=== PATIENT | male | born 2000 | race Caucasian/White ===

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

== ENCOUNTER 2022-05-08 13:47 | Emergency (ER) | payer MEDICAID, SELFPAY ==
[2022-05-08 13:47] VITALS: BP 119/88; PULSE 132; RESP 14; TEMP 36.7; O2SAT 100; BMI 18.3
[2022-05-08 14:36] LABS: Basophil# 0.03 X10^3/uL; Basophil% 0.4 % (0-1); Eosinophil# 0.03 X10^3/uL; Eosinophils% 0.4 % (0-5); Hematocrit 44.6 % (40-54); Hemoglobin 14.7 g/dL (13.0-16.5); Mean Corpuscular Hgb 29.8 pg (27.0-32.0); Mean Corpuscular Volume 90.3 fL (80-94); Mean Platelet Vol. 8.9 fl (6.2-12.0); Monocyte# 0.77 X10^3/uL; Monocyte% 9.2 % (0-10); NRBC Flagged by Analyzer 0 % (0-5); Neutrophil % 71.8 % (47-70); Platelet Count 370 K/mm3 (150-450); RBC Distribution Width CV 12.2 % (11.6-14.6); RBC Distribution Width SD 39.7 fl (35.1-43.9); Red Blood Count 4.94 M/mm3 (4.6-6.2); White Blood Count 8.4 K/mm3 (4.4-11.0)
[2022-05-08] MEDS: 0.9% Normal Saline 1,000 ML 1000 ML IV (14:39)
[2022-05-08] MEDS: Mag Hydrox/Al Hydrox/Simeth 30 ML UDC PO (14:39)
[2022-05-08 14:41] LABS: Bacteria 0 SEEN /hpf (None Seen); Mucous, Urine 0 SEEN /hpf (<or=2+); Red Blood Cells-Urine 0 SEEN /hpf (0-5); Squamous Epithelial Cells - UA 0 SEEN /hpf (0-5); White Blood Cells 0 SEEN /hpf (0-5)
[2022-05-08 14:43] LABS: Color, Urine Yellow (Yellow); Glucose, Dipstick Normal (Normal); Ketone-Dipstick Negative (Negative); Leukocyte Esterase-Dipstick Negative /ul (Negative); Nitrite-Dipstick Negative (Negative); Occult Blood-Urine Negative /ul (Negative); Protein-Dipstick Negative (Negative); Specific Gravity, Urine 1.005 (1.002-1.030); Urine Bilirubin Dipstick Negative (Negative); Urine Clarity Clear (Clear); Urine Urobilinogen Normal (Normal)
[2022-05-08 14:52] LABS: AST(SGOT) 277 U/L (15-37); Alanine Aminotransfer ALT/SGPT 210 U/L (16-61); Albumin, Serum 4.4 g/dL (3.2-5.0); Alkaline Phosphatase 112 U/L (45-117); Anion Gap 6 (5-15); BUN 5 mg/dL (7-18); Calcium,Total 9.8 mg/dL (8.5-10.1); Chloride 102 mmol/L (98-107); Creatinine, Serum 0.83 mg/dL (0.70-1.30); EST Glomerular Filtration Rate 126 mL/min (>60); Est Glom Filt Rate - Afr Amer 153 mL/min (>60); Estimated Creatinine Clearance 121.23 ml/min; Globulin 4.3 g/dL (2.2-4.2); Glucose 124 mg/dL (74-106); Lipase 189 U/L (73-393); Potassium 3.8 mmol/L (3.5-5.1); Protein, Total 8.7 g/dL (6.4-8.2); Sodium Level 137 mmol/L (136-145)
--- NOTE | 2022-05-08 15:10 | ED.VIS.GI ---
HPI HPI - GI History of Present Illness Chief Complaint: Abd Pain Informant: patient Abdominal Pain/Flank Pain Onset: Days Context: Gradual Onset Timing: Continuous Quality: Sharp and - (Pressure) Location: Epigastric, RUQ and LUQ Worsened by: Food Relieved by: Nothing Nausea/Vomiting/Emesis GI Symptom: Positive for Nausea and Vomiting Quality: Positive for Nonbilious; Negative for Blood streaks, Coffee ground or Hematemesis Diarrhea/Melena/Hematochezia GI Symptom: Negative for Diarrhea, Melena or Hematochezia Associated Symptoms Associated Symptoms: Negative for Dysuria, Frequency or Hematuria Narrative Narrative: Patient presents with abdominal pain that has been getting worse over the past few days. Patient states it has been constant. Patient states it came on gradually. Patient describes it as sharp and pressure. Patient states his pain is mainly over the upper abdomen. Patient states it is worse with eating. Patient states it is worse whenever he tries to push to have a bowel movement. Patient states he started having some nausea and vomiting today. Patient denies any hematemesis or coffee-ground emesis. Patient states he was just vomiting up stomach contents. Patient denies any diarrhea, melena, or hematochezia. Patient denies any dysuria, frequency, or hematuria. [facility] Medical History GERD (gastroesophageal reflux disease) Home Medications omeprazole 20 mg capsule,delayed release 20 mg PO DAILY #30 CAPSULES 05/08/22 [Rx Last Taken Unknown] Allergy/AdvReac Type Severity Reaction Status Date / Time No Known Allergies Allergy Verified 05/08/22 13:49 Surgical History Hx of rhinoplasty Social History Smoking Status: Light Smoker (<10/day) ROS ROS ED Constitutional Constitutional ED: Denies chills or fever(s) Eyes Eyes: Denies blurry vision or change in vision ENT ENT ED: Reports sore throat; Denies rhinorrhea Cardiovascular Cardiovascular: Denies chest pain or palpitations Respiratory/Chest Respiratory/Chest: Denies cough or dyspnea Gastrointestinal Gastrointestinal: Reports abdominal pain, nausea and vomiting Genitourinary Genitourinary ED: Denies dysuria or hematuria Musculoskeletal Musculoskeletal: Reports back pain; Denies neck pain Integumentary Denies abscess or rash Neurologic Neurologic: Denies headache(s) or weakness Allergic/Immunologic Allergic/Immunologic ED: Denies mouth swelling or urticaria EXAM Physical Exam Const Vital Signs: 05/08/22 13:47 05/08/22 15:50 Temperature 98.0 F Temperature Source Temporal Pulse Rate 132 H 63 Respiratory Rate 14 16 Blood Pressure 119/88 H 115/75 Blood Pressure Mean 98 88 Pulse Ox 100 97 Oxygen Delivery Method Room Air Room Air Positive well nourished and well developed General Appearance ED: well developed and NAD HEENT Reports moist mucous membranes Neck supple and no JVD Resp normal respiratory effort and clear to auscultation bilaterally Cardio regular rate, regular rhythm and no murmurs GI normal to inspection, nondistended, normoactive bowel sounds Palpation: soft and tender epigastric, LUQ and RUQ; Negative for guarding or rebound tenderness present Extremity normal to inspection General Extremety ED: Negative for edema or tenderness General Extremity: Negative for edema Neuro oriented x3, CN's II-XII intact bilaterally and no sensory deficits noted Sensorium / Orientation: alert Motor Exam: strength 5/5 throughout Psych mental status grossly normal Skin no rashes or lesions noted MDM MDM MDM Narrative Medical decision making narrative: Diagnosis includes pancreatitis, peptic ulcer disease, duodenal ulcer, gastritis, cholecystitis, cholelithiasis, urinary tract infection, bowel obstruction, bowel perforation, and pyelonephritis. CBC will be obtained to assess for leukocytosis and anemia. Comprehensive metabolic profile will be obtained to assess for electrolyte abnormality, renal function, and hepatic function. Lipase will be obtained to assess for pancreatitis. Urinalysis will be obtained to assess for urinary tract infection and hematuria. Right upper quadrant ultrasound will be obtained to reassess for cholecystitis and cholelithiasis. Lab Data Attestation: I reviewed the patient's lab results. Lab results narrative: CBC was reviewed and was within normal limits. Comprehensive metabolic profile was reviewed. Total bilirubin was mildly elevated at 2.0, AST was mildly elevated at 277, ALT was mildly elevated at 210. Lipase was normal. Urinalysis was reviewed and was within normal limits. Labs: Laboratory Results - last 24 hr 05/08/22 05/08/22 05/08/22 13:55 14:00 14:00 WBC 8.4 RBC 4.94 Hgb 14.7 Hct 44.6 MCV 90.3 MCH 29.8 MCHC 33.0 RDW Std Deviation 39.7 RDW Coeff of Nancy 12.2 Plt Count 370 MPV 8.9 Immature Gran % (Auto) 0.200 Neut % (Auto) 71.8 H Lymph % (Auto) 18.0 L [place] % (Auto) 9.2 Eos % (Auto) 0.4 Baso % (Auto) 0.4 Absolute Neuts (auto) 6.0 Absolute Lymphs (auto) 1.50 Nucleated RBC % 0 Sodium 137 Potassium 3.8 Chloride 102 Carbon Dioxide 29.0 Anion Gap 6 BUN 5 L Creatinine 0.83 Estim Creat Clear Calc 121.23 Est GFR (MDRD) Af Amer 153 Est GFR (MDRD) Non-Af 126 BUN/Creatinine Ratio 6.0 L Glucose 124 H Calcium 9.8 Total Bilirubin 2.00 H AST 277 H ALT 210 H Alkaline Phosphatase 112 Total Protein 8.7 H Albumin 4.4 Globulin 4.3 H Albumin/Globulin Ratio 1.0 Lipase 189 Urine Color Yellow Urine Clarity Clear Urine pH 7.0 Ur Specific [place] 1.005 Urine Protein Negative Urine Glucose (UA) Normal Urine Ketones Negative Urine Occult Blood Negative Urine Nitrite Negative Urine Bilirubin Negative Urine Urobilinogen Normal Ur Leukocyte Esterase Negative Urine RBC 0 SEEN Urine WBC 0 SEEN Ur Squamous Epith Cells 0 SEEN Urine Bacteria 0 SEEN Urine Mucus 0 SEEN Radiography Diagnostic Testing: Clinical Impression(s) from Imaging Studies Gallbladder Ultrasound 05/08/22 15:21 IMPRESSION: 1. Distended gallbladder containing gallstones and sludge. There is no wall thickening and negative Whaley''s sign. Findings are critical for acute cholecystitis. 2. Otherwise normal right upper quadrant abdominal ultrasound Electronically Signed: Cheikh Wood DO at 16:37 EST Reading Location ID and State: [address] [place] [address] Tel [phone], Service support , Because of the elevated total bilirubin, AST, and ALT, a right upper quadrant ultrasound was ordered. There is a distended gallbladder containing gallstones and sludge. There is no wall thickening and a negative Whaley sign. There is no pericholecystic fluid. Common bile duct measures 4.8 mm. This was interpreted by the radiologist and was also independently reviewed by myself. Treatment and Re-Evaluation :: Patient was given a GI cocktail and Zofran. Patient was given IV fluids. Patient is feeling better on reevaluation. Patient was initially ordered morphine along with a GI cocktail however he states his pain improved with a GI cocktail and did not want the morphine. Case was discussed with Dr. Rocha from general surgery. He states patient can follow-up as an outpatient. He does not feel the patient warrants admission for emergent cholecystectomy. Patient was given a prescription for omeprazole. Patient was instructed to use [id number] Tums as needed. Patient was instructed to avoid alcohol. Patient was instructed to follow-up with Dr. Rocha in 5 to 7 days. Patient was also instructed to follow-up with his primary care physician in 1 to 2 weeks. Patient understood and was agreeable with plan. All questions were answered. Discharge Plan Triage Chief Complaint: Abd Pain ED Provider: Pete Morgan Dx/Rx/DC Orders Clinical Impression: Cholelithiasis, Abdominal pain in male Instructions: ED Abdominal Pain Gallstone Poss, ED Gallstones with Biliary Colic Prescriptions: New omeprazole [omeprazole] 20 mg capsule,delayed release(DR/EC) 20 mg PO DAILY Qty: 30 0RF Primary Care Provider: Gurpreet Cornelius Referrals: Richie Rocha MD [Med Staff - Active Staff] - 5-7 Days Gurpreet Cornelius MD [Primary Care Provider] - 1-2 Weeks Activity Restrictions/Additional Instructions: Do not drink any alcohol. Avoid fried foods, fatty foods, and greasy foods as this will make your pain worse. Disposition Disposition: Home, Self Care
--- NOTE | 2022-05-08 15:21 | US_ITS ---
STUDY: ABDOMINAL ULTRASOUND - RIGHT UPPER QUADRANT REASON FOR VISIT: Male, 21 years old. Pain. TECHNIQUE: Ultrasound evaluation of the right upper quadrant was performed with real-time and static adams-scale imaging. TECHNICAL QUALITY: Adequate. COMPARISON: None. FINDINGS: Liver: The liver measures 14.5 cm. There is normal echogenicity of the liver. The bile ducts are within normal limits. There is hepatic color flow. The direction of portal flow is hepatopetal. There is no demonstrated mass lesion. Gallbladder: Well-distended gallbladder The gallbladder wall measures 3 mm. There is a negative sonographic Whaley''s sign. There is no pericholecystic fluid. Multiple small gallstones and sludge are seen within the fundus. Common Bile Duct (C.B.D.): The common bile duct measures 4.8 mm. Pancreas: Normal size of the head, body and tail of the pancreas. There is normal echogenicity of the pancreas. There is no demonstrated pancreatic mass or cyst. Right Kidney: Normal size of the right kidney. The right kidney measures 10.2 cm. Normal renal cortex. The right cortex measures 1.0 cm. There is no demonstrated renal mass or cyst. There is no right hydronephrosis. US/Gallbladder IMPRESSION: 1. Distended gallbladder containing gallstones and sludge. There is no wall thickening and negative Whaley''s sign. Findings are critical for acute cholecystitis. 2. Otherwise normal right upper quadrant abdominal ultrasound Electronically Signed: Cheikh Wood DO at 16:37 EST ,
[2022-05-08 15:50] VITALS: BP 115/75; PULSE 63; RESP 16; O2SAT 97
== END 2022-05-08 16:59 | disposition home or self-care (01) ==
PROVIDERS: Emergency Provider Emergency Medicine; PCP Pediatrics; Visit Provider Emergency Medicine
DX: K80.00 Calculus of gallbladder with acute cholecystitis without obstruction (principal); F17.200 Nicotine dependence, unspecified, uncomplicated
CPT/HCPCS: 76705; 80053; 81001; 83690; 85025; 96361; 96374; 96375; 99284; J7030; A4216

== ENCOUNTER 2022-06-29 21:56 | Emergency (ER) | payer MEDICAID, SELFPAY ==
[2022-06-29 21:56] VITALS: BP 121/82; PULSE 63; RESP 16; TEMP 36.9; O2SAT 100; BMI 18.6
[2022-06-29 22:13] LABS: Bacteria 0 SEEN /hpf (None Seen); Mucous, Urine 0 SEEN /hpf (<or=2+); Red Blood Cells-Urine 0 SEEN /hpf (0-5); Squamous Epithelial Cells - UA 0 SEEN /hpf (0-5); White Blood Cells 0 SEEN /hpf (0-5)
[2022-06-29 22:20] LABS: Color, Urine Yellow (Yellow); Glucose, Dipstick Normal (Normal); Ketone-Dipstick Negative (Negative); Leukocyte Esterase-Dipstick Negative /ul (Negative); Nitrite-Dipstick Negative (Negative); Occult Blood-Urine Negative /ul (Negative); Protein-Dipstick 15 mg/dl (Negative); Urine Bilirubin Dipstick Negative (Negative); Urine Clarity Clear (Clear); Urine Urobilinogen Normal (Normal)
[2022-06-29 22:53] LABS: Absolute Lymphocyte Count 3.48 X10^3/uL (0.83-4.51); Absolute Neutrophil Count 5.4 X10^3/uL (2.0-7.7); Basophil# 0.05 X10^3/uL; Basophil% 0.5 % (0-1); Eosinophil# 0.12 X10^3/uL; Eosinophils% 1.2 % (0-5); Hematocrit 41.8 % (40-54); Hemoglobin 13.9 g/dL (13.0-16.5); Lymphocyte # 3.48 X10^3/ul (0.83-4.51); Lymphocyte % 34.5 % (19-41); Mean Corp Hgb Conc 33.3 g/dL (32-36); Mean Corpuscular Hgb 30.2 pg (27.0-32.0); Mean Corpuscular Volume 90.9 fL (80-94); Mean Platelet Vol. 8.9 fl (6.2-12.0); Monocyte# 1.02 X10^3/uL; Monocyte% 10.1 % (0-10); NRBC Flagged by Analyzer 0 % (0-5); Neutrophil # 5.39 X10^3/uL (2.7-7.7); Neutrophil % 53.4 % (47-70); Platelet Count 278 K/mm3 (150-450); RBC Distribution Width CV 13.2 % (11.6-14.6); RBC Distribution Width SD 43.9 fl (35.1-43.9); White Blood Count 10.1 K/mm3 (4.4-11.0)
[2022-06-29 23:12] LABS: ALB/GLOB Ratio 1.3 RATIO (0.9-2.4); AST(SGOT) 24 U/L (15-37); Alanine Aminotransfer ALT/SGPT 31 U/L (16-61); Albumin, Serum 4.4 g/dL (3.2-5.0); Alkaline Phosphatase 72 U/L (45-117); Anion Gap 3 (5-15); BUN 10 mg/dL (7-18); BUN/Creat Ratio 12.4 RATIO (10-20); Calcium,Total 9.3 mg/dL (8.5-10.1); Chloride 105 mmol/L (98-107); EST Glomerular Filtration Rate 131 mL/min (>60); Est Glom Filt Rate - Afr Amer 158 mL/min (>60); Estimated Creatinine Clearance 127.72 ml/min; Globulin 3.5 g/dL (2.2-4.2); Glucose 110 mg/dL (74-106); Potassium 3.7 mmol/L (3.5-5.1); Protein, Total 7.9 g/dL (6.4-8.2); Sodium Level 137 mmol/L (136-145)
--- NOTE | 2022-06-30 00:19 | EDS_ITS ---
HPI HPI - GI History of Present Illness Chief Complaint: Abd Pain Informant: patient Abdominal Pain/Flank Pain Onset: Month(s) (1) Timing: Intermittent Quality: Aching and Cramping Location: Epigastric Current Severity: Gone Maximum Severity: Moderate Worsened by: Food (some; depends on what is eaten) Nausea/Vomiting/Emesis GI Symptom: Positive for Nausea and Vomiting Onset: Today Quality: Positive for Nonbilious; Negative for Blood streaks, Coffee ground or Hematemesis Severity: Moderate Diarrhea/Melena/Hematochezia GI Symptom: Negative for Diarrhea, Melena or Hematochezia Associated Symptoms Associated Symptoms: Negative for Dysuria, Frequency or Hematuria Narrative Narrative: Abdominal pain off-and-on for the last month, sometimes after certain meals, sometimes when he eats it makes it better. Today he was vomiting a lot along with the pain which is what brought him to the ER. He has been seen in the ER previously for this and was prescribed omeprazole, he states initially he was taking it intermittently but he has been taking it consistently for the past 2 weeks now, he said at first it seemed like it was helping, but today since he was vomiting a lot he comes back. He has not followed up yet for this. He states he works 12-hour shifts, Sunday-Sunday, and sometimes on weekends, so it is hard for him to follow-up which is understandable. No history of any abdominal surgeries. No bleeding from anywhere. States he is feeling much better right now. PFSH [facility] Medical History GERD (gastroesophageal reflux disease) Home Medications omeprazole 20 mg capsule,delayed release 20 mg PO DAILY #30 CAPSULES 05/08/22 [R x Last Taken Unknown] ondansetron 4 mg disintegrating tablet 8 mg PO Q8H PRN PRN Nausea #20 tabs 06/30/22 [Rx Last Taken Unknown] sucralfate 1 gram tablet (Carafate) 1 g PO TID #21 tabs 06/30/22 [Rx Last Taken Unknown] Allergy/AdvReac Type Severity Reaction Status Date / Time No Known Allergies Allergy Verified 06/29/22 21:58 Surgical History Hx of rhinoplasty Social History Smoking Status: Light Smoker (<10/day) ROS ROS ED Constitutional Constitutional ED: Denies chills or fever(s) Eyes Eyes: Denies change in vision or diplopia ENT ENT ED: Denies rhinorrhea or sore throat Cardiovascular Cardiovascular: Denies chest pain or palpitations Respiratory/Chest Respiratory/Chest: Denies cough or dyspnea Gastrointestinal Gastrointestinal: Denies abdominal pain, diarrhea, nausea or vomiting Genitourinary Genitourinary ED: Denies dysuria or hematuria Musculoskeletal Musculoskeletal: Denies back pain or neck pain Integumentary Denies abscess or rash Neurologic Neurologic: Denies headache(s), paresthesias or weakness Psychiatric Psychiatric: Denies anxiety or suicidal thoughts EXAM Physical Exam Const Vital Signs: 06/29/22 21:56 Temperature 98.4 F Temperature Source Temporal Pulse Rate 63 Respiratory Rate 16 Blood Pressure 121/82 H Blood Pressure Mean 95 Pulse Ox 100 Oxygen Delivery Method Room Air Positive well nourished and well developed General Appearance ED: well developed and NAD HEENT Reports moist mucous membranes normocephalic and atraumatic Eyes PERRL and EOMs intact bilaterally Neck full ROM and supple Resp normal respiratory effort and clear to auscultation bilaterally Cardio regular rate, regular rhythm and no murmurs GI non-tender and non-distended Auscultation: normoactive bowel sounds Palpation: soft Back/Spine no CVA tenderness General Back: other FROM Extremity normal to inspection General Extremety ED: Negative for edema, pulses abnormal or tenderness General Extremity: Negative for edema or pulses abnormal Neuro oriented x3, CN's II-XII intact bilaterally and no sensory deficits noted Sensorium / Orientation: awake and alert Motor Exam: strength 5/5 throughout Skin no rashes or lesions noted and no wounds MDM MDM MDM Narrative Medical decision making narrative: Nursing obtained blood test prior to my evaluation, I reviewed them. They are normal. Patient was reassured I do not think he needs a lipase added since his pain is gone and his exam is benign. He is not drinking alcohol. I agree with doing the omeprazole and following up with a doctor, I am going to add Carafate for the next week, and a prescription for Zofran given him 1 for the night prior to discharge she is comfortable with that plan. Lab Data Attestation: I reviewed the patient's lab results. Labs: Laboratory Results - last 24 hr 06/29/22 06/29/22 06/29/22 22:08 22:45 22:45 WBC 10.1 RBC 4.60 Hgb 13.9 Hct 41.8 MCV 90.9 MCH 30.2 MCHC 33.3 RDW Std Deviation 43.9 RDW Coeff of Nancy 13.2 Plt Count 278 MPV 8.9 Immature Gran % (Auto) 0.300 Neut % (Auto) 53.4 Lymph % (Auto) 34.5 [place] % (Auto) 10.1 H Eos % (Auto) 1.2 Baso % (Auto) 0.5 Absolute Neuts (auto) 5.4 Absolute Lymphs (auto) 3.48 Nucleated RBC % 0 Sodium 137 Potassium 3.7 Chloride 105 Carbon Dioxide 29.0 Anion Gap 3 L BUN 10 Creatinine 0.80 Estim Creat Clear Calc 127.72 Est GFR (MDRD) Af Amer 158 Est GFR (MDRD) Non-Af 131 BUN/Creatinine Ratio 12.4 Glucose 110 H Calcium 9.3 Total Bilirubin 0.80 AST 24 ALT 31 Alkaline Phosphatase 72 Total Protein 7.9 Albumin 4.4 Globulin 3.5 Albumin/Globulin Ratio 1.3 Urine Color Yellow Urine Clarity Clear Urine pH 7.0 Ur Specific [place] 1.010 Urine Protein 15 H Urine Glucose (UA) Normal Urine Ketones Negative Urine Occult Blood Negative Urine Nitrite Negative Urine Bilirubin Negative Urine Urobilinogen Normal Ur Leukocyte Esterase Negative Urine RBC 0 SEEN Urine WBC 0 SEEN Ur Squamous Epith Cells 0 SEEN Urine Bacteria 0 SEEN Urine Mucus 0 SEEN Discharge Plan Triage Chief Complaint: Abd Pain ED Provider: Michael Lorenzo Dx/Rx/DC Orders Clinical Impression: Acute gastritis without bleeding Instructions: ED Gastritis (Adult) Prescriptions: New ondansetron [ondansetron] 4 mg tablet,disintegrating 8 mg PO Q8H PRN PRN (Reason: Nausea) Qty: 20 0RF sucralfate [Carafate] 1 gram tablet 1 g PO TID Qty: 21 0RF No Action omeprazole [omeprazole] 20 mg capsule,delayed release(DR/EC) 20 mg PO DAILY Qty: 30 0RF Primary Care Provider: Gurpreet Cornelius Referrals: Gurpreet Cornelius MD [Primary Care Provider] - 1 Week if not improving Disposition Disposition: Home, Self Care
[2022-06-30] MEDS: Ondansetron ODT 4 MG Tablet 8 MG PO (00:35)
[2022-06-30 00:37] VITALS: BP 117/81; PULSE 56; RESP 16; O2SAT 98
== END 2022-06-30 00:42 | disposition home or self-care (01) ==
PROVIDERS: Emergency Provider Emergency Medicine; PCP Pediatrics; Visit Provider Emergency Medicine
DX: K29.00 Acute gastritis without bleeding (principal); K21.9 Gastro-esophageal reflux disease without esophagitis; F17.200 Nicotine dependence, unspecified, uncomplicated; Z79.899 Other long term (current) drug therapy
CPT/HCPCS: 80053; 85025; 81001; 99283; J3490; A4216

== ENCOUNTER 2022-07-01 18:50 | Observation (INO) | payer MEDICAID, SELFPAY ==
[2022-07-01 18:51] VITALS: BP 106/82; PULSE 82; RESP 16; TEMP 36.4; O2SAT 100; BMI 18.5
--- NOTE | 2022-07-01 19:14 | EDS_ITS ---
HPI HPI - GI History of Present Illness Chief Complaint: Abd Pain Informant: patient Narrative Narrative: Patient has been having upper abdominal pain for the past month. Intermittent, feels like cramping or aching, mostly epigastric, seems worse with foods. He was seen here 2 days for it, his labs were negative and he was prescribed medications for upper GI etiologies, he states initially it seemed like it was helping, but now his pain is moved to the right upper quadrant and seems more colicky, radiates to his back on the right a little, and he states his girlfriend told him that his eyes look yellow. He has had a poor appetite, but when he did eat, the pain was worse about an hour later and has been colicky. PFSH PFSH Medical History GERD (gastroesophageal reflux disease) Home Medications omeprazole 20 mg capsule,delayed release 20 mg PO DAILY #30 CAPSULES 05/08/22 [Rx Last Taken Unknown] ondansetron 4 mg disintegrating tablet 8 mg PO Q8H PRN PRN Nausea #20 tabs 06/30/22 [Rx Last Taken Unknown] sucralfate 1 gram tablet (Carafate) 1 g PO TID #21 tabs 06/30/22 [Rx Last Taken Unknown] Allergy/AdvReac Type Severity Reaction Status Date / Time No Known Allergies Allergy Verified 07/01/22 18:52 Surgical History Hx of rhinoplasty Social History Smoking Status: Light Smoker (<10/day) ROS ROS ED Constitutional Constitutional ED: Reports other Details: no travel out of the area recently ; Denies chills or fever(s) Eyes Eyes: Denies change in vision or diplopia ENT ENT ED: Denies rhinorrhea or sore throat Cardiovascular Cardiovascular: Denies chest pain or palpitations Respiratory/Chest Respiratory/Chest: Denies cough or dyspnea Gastrointestinal Gastrointestinal: Reports abdominal pain and nausea; Denies diarrhea or vomiting Genitourinary Genitourinary ED: Denies dysuria or hematuria Musculoskeletal Musculoskeletal: Denies back pain or neck pain Integumentary Denies abscess or rash Neurologic Neurologic: Denies headache(s), paresthesias or weakness Psychiatric Psychiatric: Denies anxiety or suicidal thoughts EXAM Physical Exam Const Vital Signs: 07/01/22 18:51 07/01/22 20:50 07/01/22 22:00 Temperature 97.5 F L Temperature Source Temporal Pulse Rate 82 Respiratory Rate 16 18 Blood Pressure 106/82 H 102/78 Blood Pressure Mean 90 86 Pulse Ox 100 Oxygen Delivery Method Room Air Positive well nourished and well developed General Appearance ED: well developed and NAD HEENT Reports moist mucous membranes normocephalic and atraumatic Eyes PERRL and EOMs intact bilaterally General Eye ED: Yes scleral icterus Neck full ROM and supple Resp normal respiratory effort and clear to auscultation bilaterally Cardio regular rate, regular rhythm and no murmurs GI non-distended GI Narrative: Tender right upper quadrant more than the epigastrium, mildly positive Whaley's, no other guarding/rebound. No other areas of tenderness. Auscultation: normoactive bowel sounds Palpation: soft Back/Spine no CVA tenderness General Back: other FROM Extremity normal to inspection General Extremety ED: Negative for edema, pulses abnormal or tenderness General Extremity: Negative for edema or pulses abnormal Neuro oriented x3, CN's II-XII intact bilaterally and no sensory deficits noted Sensorium / Orientation: awake and alert Motor Exam: strength 5/5 throughout Psych mental status grossly normal and thought process normal Skin no rashes or lesions noted and no wounds General Skin Exam: Negative for jaundice MDM MDM MDM Narrative Medical decision making narrative: Patient did not have a leukocytosis or elevated liver enzymes 2 days ago, I repeated those, and also reviewed old records. Unknown prior to this, the patient had an ultrasound about 1.5 months ago showing cholelithiasis, this was discovered here in the emergency department, he was advised to follow-up with surgery as an outpatient. He has not done this. I did a bedside ultrasound of his gallbladder. I confirmed that the patient has gallstones, a positive sonographic Whaley, but I do not see any pericholecystic fluid. The gallbladder wall on my measurements is 0.24 cm, and the common bile duct on my measurement is 0.18 cm. His bilirubin is significantly elevated consistent with the scleral icterus I am seeing clinically, his lipase is normal and his white blood count is normal. He does have mild liver enzyme elevations, but not AP, of undetermined significance at this time. Patient does not have any risk factors for hepatitis; he is not an IV drug user, no travel out of the area recently, not a man having sex with men, and no history of infectious hepatitis. Given all of this, he will need to be admitted to the hospital for further workup. He is not septic, he is relatively well-appearing at this time, his pain is only 4/10, I will give him Toradol and Zofran for his nausea. I discussed w/ surgery Dr. Ng, who advised a direct bili and a CT. These were obtained. The CT abdomen/pelvis was basically unremarkable, I reviewed the interpretation of the images, I agree with the radiologist's interpretation. Discussing with surgery, she is concerned that this is not necessarily choledocholithiasis, and recommend admission to the hospital to medicine with a surgical consultation. History & Record Review Additional record(s) reviewed:: Prior ED visit and Prior labs (and imaging) Lab Data Attestation: I reviewed the patient's lab results. Labs: Laboratory Results - last 24 hr 07/01/22 07/01/22 07/01/22 19:22 19:22 19:22 WBC 6.4 RBC 4.50 L Hgb 13.7 Hct 41.5 MCV 92.2 MCH 30.4 MCHC 33.0 RDW Std Deviation 44.4 H RDW Coeff of Nancy 13.2 Plt Count 259 MPV 8.9 Immature Gran % (Auto) 0.200 Neut % (Auto) 60.1 Lymph % (Auto) 28.1 [place] % (Auto) 9.4 Eos % (Auto) 1.7 Baso % (Auto) 0.5 Absolute Neuts (auto) 3.8 Absolute Lymphs (auto) 1.79 Nucleated RBC % 0 Sodium 136 Potassium 3.6 Chloride 105 Carbon Dioxide 29.0 Anion Gap 2 L BUN 9 Creatinine 0.94 Estim Creat Clear Calc 107.86 Est GFR (MDRD) Af Amer 132 Est GFR (MDRD) Non-Af 109 BUN/Creatinine Ratio 9.6 L Glucose 101 Calcium 9.3 Total Bilirubin 8.30 H Direct Bilirubin 4.61 H AST 79 H ALT 123 H Alkaline Phosphatase 94 Total Protein 7.6 Albumin 4.2 Globulin 3.4 Albumin/Globulin Ratio 1.2 Lipase 44 Radiography Diagnostic Testing: Clinical Impression(s) from Imaging Studies Abdomen/Pelvis CT 07/01/22 20:14 IMPRESSION: 1. Moderate distention the stomach however no masses or wall thickening identified. 2. No bowel obstruction. Moderate amount retained formed stool in colon. Normal appendix. 3. No evidence of obstructive uropathy. 4. No radiodense calcifications in the gallbladder. Electronically Signed: Bj Cabrera MD at 22:18 EDT , Management Discussion w/another healthcare provider: Hospitalist and Special Education Math Teacher (surgery Jared Ng) Discharge Plan Dx/Rx/DC Orders Clinical Impression: Biliary colic, Cholelithiasis, Acquired hyperbilirubinemia Disposition Disposition: Acute Care Hospital [facility]
[2022-07-01 19:27] LABS: Absolute Lymphocyte Count 1.79 X10^3/uL (0.83-4.51); Absolute Neutrophil Count 3.8 X10^3/uL (2.0-7.7); Basophil# 0.03 X10^3/uL; Basophil% 0.5 % (0-1); Eosinophil# 0.11 X10^3/uL; Eosinophils% 1.7 % (0-5); Hematocrit 41.5 % (40-54); Hemoglobin 13.7 g/dL (13.0-16.5); Lymphocyte # 1.79 X10^3/ul (0.83-4.51); Lymphocyte % 28.1 % (19-41); Mean Corpuscular Hgb 30.4 pg (27.0-32.0); Mean Corpuscular Volume 92.2 fL (80-94); Mean Platelet Vol. 8.9 fl (6.2-12.0); Monocyte% 9.4 % (0-10); NRBC Flagged by Analyzer 0 % (0-5); Neutrophil # 3.82 X10^3/uL (2.7-7.7); Neutrophil % 60.1 % (47-70); Platelet Count 259 K/mm3 (150-450); RBC Distribution Width CV 13.2 % (11.6-14.6); RBC Distribution Width SD 44.4 fl (35.1-43.9); White Blood Count 6.4 K/mm3 (4.4-11.0)
[2022-07-01 19:47] LABS: ALB/GLOB Ratio 1.2 RATIO (0.9-2.4); AST(SGOT) 79 U/L (15-37); Alanine Aminotransfer ALT/SGPT 123 U/L (16-61); Albumin, Serum 4.2 g/dL (3.2-5.0); Alkaline Phosphatase 94 U/L (45-117); Anion Gap 2 (5-15); BUN 9 mg/dL (7-18); BUN/Creat Ratio 9.6 RATIO (10-20); Calcium,Total 9.3 mg/dL (8.5-10.1); Chloride 105 mmol/L (98-107); Creatinine, Serum 0.94 mg/dL (0.70-1.30); EST Glomerular Filtration Rate 109 mL/min (>60); Est Glom Filt Rate - Afr Amer 132 mL/min (>60); Estimated Creatinine Clearance 107.86 ml/min; Globulin 3.4 g/dL (2.2-4.2); Glucose 101 mg/dL (74-106); Lipase 44 U/L (13-75); Potassium 3.6 mmol/L (3.5-5.1); Protein, Total 7.6 g/dL (6.4-8.2); Sodium Level 136 mmol/L (136-145)
--- NOTE | 2022-07-01 20:14 | CT_ITS ---
INDICATION: RUQ pain, hyperbilirubinemia without elevated AP EXAMINATION: CT ABDOMEN AND PELVIS with CONTRAST - CT Abdomen And Pelvis W/ Contrast Injection TECHNIQUE: Multiple axial images were obtained of the abdomen and pelvis following administration of IV contrast. Planar reconstructions obtained. A radiation dose optimization technique was used for this scan. RADIATION DOSAGE (If Supplied By Facility): CTDIvol = ( 10.29 ) mGy, DLP = ( 376.65 ) mGycm IV Contrast dosage and agent: 100 mL Isovue-370 Oral contrast: None. COMPARISON: None. FINDINGS: LOWER THORAX: Lungs are clear. Cardiac contour is normal, no pericardial effusion. No coronary vascular calcifications noted. HEPATOBILIARY: Liver: The liver is homogeneous and shows no evidence of focal lesion. Gallbladder: The gallbladder is unremarkable. No evidence of ductal dilatation. Pancreas: Pancreas is normal size configuration and density. No mass is noted. Spleen: The spleen is homogeneous and normal in size. . BOWEL: Stomach: Moderate distention of the stomach with semisolid material. No masses or artie obstruction. Bowel: Small and large have normal configuration, no masses or bowel obstruction noted. Moderate amount retained stool throughout colon. Appendix: The visualized appendix has normal appearance.: GENITOURINARY: Adrenals: Both adrenal glands are normal in size. Kidneys: Kidneys appear symmetric in size. No calcifications are seen in the collecting system. There is no hydronephrosis or surrounding fluid. Bladder: Normal Pelvic organs: The visualized pelvic organs are normal in size and configuration. No masses or adenopathy noted. RETROPERITONEUM: There is normal appearance of the abdominal aorta and inferior vena cava. LYMPH NODES: No evidence of retroperitoneal or para-aortic masses fluid collections or adenopathy. PERITONEAL CAVITY: No ascites noted ANTERIOR ABDOMINAL WALL: Normal, no hernia identified. BONES AND SOFT TISSUES: The skeleton shows no evidence for fractures or destructive lesions. OTHER: None CT/Abdomen/Pelvis W IV Cont ONLY IMPRESSION: 1. Moderate distention the stomach however no masses or wall thickening identified. 2. No bowel obstruction. Moderate amount retained formed stool in colon. Normal appendix. 3. No evidence of obstructive uropathy. 4. No radiodense calcifications in the gallbladder. Electronically Signed: Bj Cabrera MD at 22:18 EDT ,
[2022-07-01] MEDS: Ketorolac 15 MG/ML Vial IV (20:28)
[2022-07-01] MEDS: Ondansetron 4 MG/2 ML Vial IV (20:28)
[2022-07-01] MEDS: 0.9% Normal Saline 1,000 ML 999 ML IV (20:28)
[2022-07-01 20:47] LABS: Bilirubin, Direct 4.61 mg/dL (0.00-0.30)
[2022-07-01 20:50] VITALS: RESP 18
[2022-07-01 22:00] VITALS: BP 102/78
[2022-07-02] VITALS (9 sets, daily range): BP systolic 101–126; BP diastolic 68–87; PULSE 55–80; RESP 16–18; TEMP 36.4–36.7; O2SAT 98–100; BMI 18.1
--- NOTE | 2022-07-02 | HP.PCM.HOS_ITS ---
[facility] - General General Date of Admission: 07/01/22 Date of Service: 07/02/22 Chief Complaint: Sclera icterus HPI Narrative ZIGGY BLACKMON, is a 21 M with no significant medical history who presents emergency department with scleral icterus that started on the same day of presentation. Associated with her symptoms is yellowish discoloration of his face. Also for the past 2 months also patient has noticed belly pain. Initially his pain was a t the epigastric region and it felt like clogged. Later his pain progressed to his right upper quadrant. His pain is episodic. Intensity of his pain is 7-8 on a scale of 1-10. His pain worsens with fatty foods. He reported that if he if he eats apple he does not have pain. However, if he eats pizza, spaghetti and grilled cheese he has pain about 30 minutes thereafter. He reports nausea and vomiting. He reports constipation with last bowel movement 2 to 3 days unlike his usual cycle of bowel movements every 1 to 2 days. ED doctor reports that on bedside ultrasound patient had gallstones without stone in the cystic duct. Of note patient had an ultrasound of his gallbladder on 05/08/2022 that showed distended gallbladder containing gallstones and sludge; and patient was instructed to follow-up outpatient. Also on 06/30/2022 patient was sent to ED and was diagnosed with acute gastritis and prescribed Zofran and sucralfate.. He was to continue his omeprazole. On current presentation 07/01/2022 emergency department doctor discussed the case with general surgery who upon review recommended recommended a CAT scan later; and recommended admission to internal medicine admission and with consultation to general surgery. [facility] Medical History GERD (gastroesophageal reflux disease) Home Medications ondansetron 4 mg disintegrating tablet 8 mg PO Q8H PRN PRN Nausea #20 tabs 06/30/22 [Rx Last Taken Unknown] omeprazole 20 mg capsule,delayed release 20 mg PO DAILY GERD 07/02/22 [History Last Taken 07/01/22] sucralfate 1 gram tablet (Carafate) 1 g PO TID Check with primary doctor 07/02/22 [History Last Taken 07/01/22] Allergy/AdvReac Type Severity Reaction Status Date / Time No Known Allergies Allergy Verified 07/01/22 18:52 Family History Other Gallbladder disease Surgical History Hx of rhinoplasty Social History Smoking Status: Light Smoker (<10/day) ROS ROS Narrative Pertinent positives and pertinent negatives as noted in HPI. All other systems were reviewed and are negative Vital Signs Vital Signs Vital Signs: 07/01/22 18:51 07/01/22 20:50 07/01/22 22:00 Temperature 97.5 F L Temperature Source Temporal Pulse Rate 82 Respiratory Rate 16 18 Blood Pressure 106/82 H 102/78 Blood Pressure Mean 90 86 Pulse Ox 100 Oxygen Delivery Method Room Air Weight Weight: 60.328 kg Body Mass Index (BMI) 18.5 Physical Exam Narrative Physical exam: General: Well-nourished, well-developed. Head: Normocephalic, atraumatic, no tenderness Eyes: Sclera icterus; vision is grossly intact. EOMI ENT, no trauma, moist mucous membranes, no rhinorrhea Neck: Nontender, No thyromegaly. CVS: Regular rate and rhythm. S1-S2 present. No murmur, gallop or rub. Respiratory : clear to auscultation bilaterally, chest wall nontender Abdomen: Soft, nontender, nondistended, normal bowel sounds, no masses : Deferred Back: Nontender, no CVA tenderness, no midline spinal tenderness, deformities, step-offs Extremities: Nontender full range of motion, no trauma Skin: Yellow skin, no trauma, abrasions Neuro: Alert, oriented, cranial nerves II through XII grossly intact. Psychiatry: Normal mood. Normal affect. Not depressed. Not anxious. Results Lab / Micro Data Result Diagrams: 07/01/22 19:22 07/01/22 19:22 Labs: Laboratory Results - last 24 hr 07/01/22 19:22: WBC 6.4, RBC 4.50 L, Hgb 13.7, Hct 41.5, MCV 92.2, MCH 30.4, MCHC 33.0, RDW Std Deviation 44.4 H, RDW Coeff of Nancy 13.2, Plt Count 259, MPV 8.9, Immature Gran % (Auto) 0.200, Neut % (Auto) 60.1, Lymph % (Auto) 28.1, [place] % (Auto) 9.4, Eos % (Auto) 1.7, Baso % (Auto) 0.5, Absolute Neuts (auto) 3.8, Absolute Lymphs (auto) 1.79, Nucleated RBC % 0 07/01/22 19:22: Sodium 136, Potassium 3.6, Chloride 105, Carbon Dioxide 29.0, Anion Gap 2 L, BUN 9, Creatinine 0.94, Estim Creat Clear Calc 107.86, Est GFR (MDRD) Af Amer 132, Est GFR (MDRD) Non-Af 109, BUN/Creatinine Ratio 9.6 L, Glucose 101, Calcium 9.3, Total Bilirubin 8.30 H, AST 79 H, ALT 123 H, Alkaline Phosphatase 94, Total Protein 7.6, Albumin 4.2, Globulin 3.4, Albumin/Globulin Ratio 1.2, Lipase 44 07/01/22 19:22: Direct Bilirubin 4.61 H Radiology Impression Abdomen/Pelvis CT 07/01/22 20:14 IMPRESSION: 1. Moderate distention the stomach however no masses or wall thickening identified. 2. No bowel obstruction. Moderate amount retained formed stool in colon. Normal appendix. 3. No evidence of obstructive uropathy. 4. No radiodense calcifications in the gallbladder. Electronically Signed: Bj Cabrera MD at 22:18 EDT , Assessment & Plan Assessment/Plan (1) Biliary colic: (2) Cholelithiasis: (3) Acquired hyperbilirubinemia: (4) Constipation: PLAN: Plan Cholelithiasis/biliary colic/acquired hyperbilirubinemia With pain associated with fatty foods likely biliary colic. Radiologist impression of gallbladder ultrasound on 05/08/2022: 1.? Distended gallbladder containing gallstones and sludge. There is no wall thickening and negative Whaley''s sign. Findings are critical for acute cholecystitis. 2.? Otherwise normal right upper quadrant abdominal ultrasound However concern is no elevation in alkaline phosphatase. Will check acute hep atitis panel. We will check ceruloplasmin; anti-smooth body antibody; antinuclear antibody and antimitochondrial antibody. Trend CBC and CMP. Morphine IV prn pain. Zofran IV as needed for nausea/vomiting. Low Fat diet. General surgery consult. Constipation Radiologist impression of abdomen/pelvis CT: 1. ? Moderate distention the stomach however no masses or wall thickening identified. 2.? No bowel obstruction. Moderate amount retained formed stool in colon. Normal appendix. 3.? No evidence of obstructive uropathy. 4.? No radiodense calcifications in the gallbladder. Hospitalist independent interpretation of CT: Agrees with radiology interpretation of [place] as ordered. DVT prophylaxis Low risk. Encourage to ambulate Charges/Coding Visit Charges Inpatient E&M: 32700 Init Hosp L3
[2022-07-02] MEDS: Senna/Docusate Sodium 1 Tablet 2 TABLET PO ×3 (01:19→22:22)
[2022-07-02 06:38] LABS: Absolute Neutrophil Count 3.8 X10^3/uL (2.0-7.7); Basophil# 0.03 X10^3/uL; Basophil% 0.4 % (0-1); Eosinophil# 0.05 X10^3/uL; Eosinophils% 0.7 % (0-5); Hematocrit 39.6 % (40-54); Hemoglobin 13.1 g/dL (13.0-16.5); Mean Corp Hgb Conc 33.1 g/dL (32-36); Mean Corpuscular Hgb 30.1 pg (27.0-32.0); Mean Platelet Vol. 9.1 fl (6.2-12.0); Monocyte# 0.74 X10^3/uL; Monocyte% 11.1 % (0-10); NRBC Flagged by Analyzer 0 % (0-5); Neutrophil # 3.84 X10^3/uL (2.7-7.7); Neutrophil % 57.7 % (47-70); Platelet Count 267 K/mm3 (150-450); RBC Distribution Width CV 13.3 % (11.6-14.6); RBC Distribution Width SD 44.9 fl (35.1-43.9); Red Blood Count 4.35 M/mm3 (4.6-6.2); White Blood Count 6.7 K/mm3 (4.4-11.0)
[2022-07-02 06:42] LABS: International Normalized Ratio 1.2; Prothrombin Time (Protime)PT. 14.8 SECONDS (11.7-14.9)
--- NOTE | 2022-07-02 06:55 | PCM.PN.HOSP ---
Reason for Visit Reason for Visit: Diagnoses Other disorders of bilirubin metabolism (07/01/22) Constipation, unspecified (07/01/22) Calculus of gallbladder without cholecystitis without obstruction (07/01/22) Calculus of bile duct without cholangitis or cholecystitis without obstruction (07/01/22) Subjective Subjective Reports he is feeling slightly better though still has the right upper quadrant pain, less nausea. Objective Data Objective Data Vital Signs: Vital Signs Temp Pulse Resp BP Pulse Ox O2 Del Method 98.1 F 70 16 101/68 99 Room Air 07/02/22 05:25 07/02/22 05:25 07/02/22 05:25 07/02/22 05:25 07/02/22 05:25 07/02/22 05:25 Oxygen Delivery Method Room Air Weight: 59.2 kg Body Mass Index (BMI) 18.1 Intake & Output: Intake and Output for Last 24 Hours 06/30/22 07/01/22 07/02/22 23:59 23:59 23:59 Intake Total 1000 / 1000 600 / 600 Balance 1000 / 1000 600 / 600 Lab / Micro Data Result Diagrams: 07/02/22 05:38 07/02/22 05:38 Labs: Laboratory Results - last 24 hr 07/01/22 19:22: WBC 6.4, RBC 4.50 L, Hgb 13.7, Hct 41.5, MCV 92.2, MCH 30.4, MCHC 33.0, RDW Std Deviation 44.4 H, RDW Coeff of Nancy 13.2, Plt Count 259, MPV 8.9, Immature Gran % (Auto) 0.200, Neut % (Auto) 60.1, Lymph % (Auto) 28.1, [place] % (Auto) 9.4, Eos % (Auto) 1.7, Baso % (Auto) 0.5, Absolute Neuts (auto) 3.8, Absolute Lymphs (auto) 1.79, Nucleated RBC % 0 07/01/22 19:22: Sodium 136, Potassium 3.6, Chloride 105, Carbon Dioxide 29.0, Anion Gap 2 L, BUN 9, Creatinine 0.94, Estim Creat Clear Calc 107.86, Est GFR (MDRD) Af Amer 132, Est GFR (MDRD) Non-Af 109, BUN/Creatinine Ratio 9.6 L, Glucose 101, Calcium 9.3, Total Bilirubin 8.30 H, AST 79 H, ALT 123 H, Alkaline Phosphatase 94, Total Protein 7.6, Albumin 4.2, Globulin 3.4, Albumin/Globulin Ratio 1.2, Lipase 44 07/01/22 19:22: Direct Bilirubin 4.61 H 07/02/22 05:38: WBC 6.7, RBC 4.35 L, Hgb 13.1, Hct 39.6 L, MCV 91.0, MCH 30.1, MCHC 33.1, RDW Std Deviation 44.9 H, RDW Coeff of Nancy 13.3, Plt Count 267, MPV 9.1, Immature Gran % (Auto) 0.100, Neut % (Auto) 57.7, Lymph % (Auto) 30.0, [place] % (Auto) 11.1 H, Eos % (Auto) 0.7, Baso % (Auto) 0.4, Absolute Neuts (auto) 3.8, Absolute Lymphs (auto) 2.00, Nucleated RBC % 0 07/02/22 05:38: PT 14.8, INR 1.2 Radiography Diagnostic Testing: Radiology Impression Abdomen/Pelvis CT 07/01/22 20:14 IMPRESSION: 1. Moderate distention the stomach however no masses or wall thickening identified. 2. No bowel obstruction. Moderate amount retained formed stool in colon. Normal appendix. 3. No evidence of obstructive uropathy. 4. No radiodense calcifications in the gallbladder. Electronically Signed: Bj Cabrera MD at 22:18 EDT , Physical Exam Narrative General: Alert, oriented, no apparent distress HEENT: Atraumatic, normocephalic Eyes: Extraocular movements grossly intact Neck: Supple Respiratory: Clear to auscultation bilaterally, normal respiratory effort Cardiovascular: Regular rate and rhythm GI: Soft, nondistended, minimal tenderness without rebound, guarding, rigidity Extremities: No edema Musculoskeletal: Moving all extremities Neuro: No overt focal neurological deficits Skin: Fairly jaundice Psych: Cooperative Assessment & Plan Assessment/Plan (1) Biliary colic: (2) Cholelithiasis: (3) Acquired hyperbilirubinemia: (4) Constipation: PLAN: Plan #Cholelithiasis/biliary colic/acquired hyperbilirubinemia -Pain with fatty foods and description suspicious for biliary colic -CT unremarkable but has elevated bili, gallstones, sonographic Whaley sign -But no elevated alk phos so GEN surg consulted but additional work-up ordered -T. bili on admission 8.3 and D bili 4.61 -AST 79 and ALT 123 with an alk phos of 94 -2 days prior he had normal bili and liver function -GI consult in the a.m. -Trend CMP -Lab work-up pending #Constipation -Seen on CT -Bowel regimen #DVT ppx: Low risk Yoli Tidwell MD
[2022-07-02 07:02] LABS: ALB/GLOB Ratio 1.2 RATIO (0.9-2.4); AST(SGOT) 62 U/L (15-37); Alanine Aminotransfer ALT/SGPT 115 U/L (16-61); Albumin, Serum 3.9 g/dL (3.2-5.0); Alkaline Phosphatase 91 U/L (45-117); Anion Gap 7 (5-15); BUN 8 mg/dL (7-18); BUN/Creat Ratio 10.3 RATIO (10-20); Calcium,Total 8.9 mg/dL (8.5-10.1); Chloride 106 mmol/L (98-107); Creatinine, Serum 0.78 mg/dL (0.70-1.30); EST Glomerular Filtration Rate 136 mL/min (>60); Est Glom Filt Rate - Afr Amer 164 mL/min (>60); Estimated Creatinine Clearance 127.55 ml/min; Globulin 3.2 g/dL (2.2-4.2); Glucose 99 mg/dL (74-106); Protein, Total 7.1 g/dL (6.4-8.2); Sodium Level 138 mmol/L (136-145)
--- NOTE | 2022-07-02 07:40 | EX.PCM.CON.S ---
Assessment & Plan Assessment/Plan (1) RUQ abdominal pain: (2) Epigastric abdominal pain: (3) Cholelithiasis: (4) Acquired hyperbilirubinemia: PLAN: Plan Did review patient's ultrasound and CAT scan personally as well as with the patient. Patient's CAT scan did show an enlarged stomach. Per patient's report of his recent diet does seem to be appropriate food then I would expect. Also reviewed patient's lab's. Discussed with patient I do have a lower suspicion of choledocholithiasis being the issue with the elevated bilirubin as the alk phos has been normal this entire time. Wonder if there is another etiology causing the elevated bilirubin. Hepatitis as well as other labs are currently pending. We will continue to follow patient-- okay for diet. Currently not believe that cholecystectomy would completely resolve all of patient's issues due to the labs not being typical for gallbladder disease. Patient also has not white blood cell count or shift he is not on any antibiotics. Patient does have history of GERD we will place on a PPI. And I do question of some the right upper quadrant pain is due to this as well Holly Ng M.D. Pager: [phone] [facility] [address] [place] [address], [facility], [address] [place] [address] Office: [phone] HPI Consult Data Date of Consult: 07/03/22 HPI Narrative HPI Narrative: ZIGGY BLACKMON, is a 21 M who presents to the ER due to abdominal pain nausea vomiting. Patient states she has been having issues with abdominal pain in her low about the last 2 to 3 months. Patient states about 3 months ago started noticing some burning up his esophagus so put himself on [id number] omeprazole which she took for about 2 months and that burning sensation did resolve. Patient then stated about a month ago started having little more of the right upper quadrant discomfort states that usually was after eating however he states that he normally did not have a problem when he was working during the week and noticed it more on the weekends but states he was eating basically the same food. Patient did go to the ER in May at that time had an ultrasound of the gallbladder did show some gallstones and sludge and he did have a total bili of 2 with AST and ALTs in the 200s with a normal alk phos. Patient again was in the ER 2 days ago as he states that abdominal pain was starting however at that time all of his LFTs were normal. Patient was sent home. Yesterday he came to the ER as his pain states is a 3-4/10 and is worried it was going to get worse. Patient's LFTs had a bilirubin of 8.3, 2 times normal AST and ALT and a normal alk phos with normal white blood cell count no shift. Patient currently states that he does have a little bit of right upper quadrant discomfort this morning when he woke up and he has not had anything to eat this morning. Rates as 7/10 appears comfortable. Patient states he drinks maybe 1 energy drink daily or every other day but has been less in the last week. Patient denies any family history of any liver disease. [facility] Medical History GERD (gastroesophageal reflux disease) Home Medications ondansetron 4 mg disintegrating tablet 8 mg PO Q8H PRN PRN Nausea #20 tabs 06/30/22 [Rx Last Taken 07/01/22] omeprazole 20 mg capsule,delayed release 20 mg PO DAILY GERD 07/02/22 [History Last Taken 07/01/22] sucralfate 1 gram tablet (Carafate) 1 g PO TID Check with primary doctor 07/02/22 [History Last Taken 07/01/22] Allergy/AdvReac Type Severity Reaction Status Date / Time No Known Allergies Allergy Verified 07/01/22 18:52 Family History Other Gallbladder disease Surgical History Hx of rhinoplasty Social History Smoking Status: Light Smoker (<10/day) ROS Constitutional Constitutional: Reports anorexia; Denies fever(s) Eyes Eyes: Denies loss of vision ENT HEENT: Denies dysphagia Cardiovascular Cardiovascular: Denies palpitations Respiratory/Chest Respiratory/Chest: Denies productive cough Gastrointestinal Gastrointestinal: Reports abdominal pain, nausea and vomiting Genitourinary Genitourinary: Denies dysuria Musculoskeletal Musculoskeletal: Denies joint swelling Integumentary Integumentary: Reports jaundice; Denies rash Neurologic Neurologic: Denies numbness Psychiatric Psychiatric: Denies anxiety or depression Endocrine Endocrinology: Denies palpitations Hematologic/Lymphatic Hematologic/Lymphatic: Denies easy bleeding Physical Exam Const alert, oriented x3 and no apparent distress HEENT normocephalic and head/scalp atraumatic Resp normal respiratory effort Cardio regular rate GI soft to palpation; Negative for non-distended Palpation: tender epigastric and RUQ; Negative for guarding Extremity no clubbing, cyanosis or edema Neuro CN's II-XII intact bilaterally Psych mental status grossly normal Lab / Micro Data Result Diagrams: 07/03/22 05:40 07/03/22 05:40 Labs: Laboratory Results - last 24 hr 07/01/22 19:22: WBC 6.4, RBC 4.50 L, Hgb 13.7, Hct 41.5, MCV 92.2, MCH 30.4, MCHC 33.0, RDW Std Deviation 44.4 H, RDW Coeff of Nancy 13.2, Plt Count 259, MPV 8.9, Immature Gran % (Auto) 0.200, Neut % (Auto) 60.1, Lymph % (Auto) 28.1, [place] % (Auto) 9.4, Eos % (Auto) 1.7, Baso % (Auto) 0.5, Absolute Neuts (auto) 3.8, Absolute Lymphs (auto) 1.79, Nucleated RBC % 0 07/01/22 19:22: Sodium 136, Potassium 3.6, Chloride 105, Carbon Dioxide 29.0, Anion Gap 2 L, BUN 9, Creatinine 0.94, Estim Creat Clear Calc 107.86, Est GFR (MDRD) Af Amer 132, Est GFR (MDRD) Non-Af 109, BUN/Creatinine Ratio 9.6 L, Glucose 101, Calcium 9.3, Total Bilirubin 8.30 H, AST 79 H, ALT 123 H, Alkaline Phosphatase 94, Total Protein 7.6, Albumin 4.2, Globulin 3.4, Albumin/Globulin Ratio 1.2, Lipase 44 07/01/22 19:22: Direct Bilirubin 4.61 H 07/02/22 05:38: WBC 6.7, RBC 4.35 L, Hgb 13.1, Hct 39.6 L, MCV 91.0, MCH 30.1, MCHC 33.1, RDW Std Deviation 44.9 H, RDW Coeff of Nancy 13.3, Plt Count 267, MPV 9.1, Immature Gran % (Auto) 0.100, Neut % (Auto) 57.7, Lymph % (Auto) 30.0, [place] % (Auto) 11.1 H, Eos % (Auto) 0.7, Baso % (Auto) 0.4, Absolute Neuts (auto) 3.8, Absolute Lymphs (auto) 2.00, Nucleated RBC % 0 07/02/22 05:38: PT 14.8, INR 1.2 07/02/22 05:38: Sodium 138, Potassium 4.0, Chloride 106, Carbon Dioxide 25.0, Anion Gap 7, BUN 8, Creatinine 0.78, Estim Creat Clear Calc 127.55, Est GFR (MDRD) Af Amer 164, Est GFR (MDRD) Non-Af 136, BUN/Creatinine Ratio 10.3, Glucose 99, Calcium 8.9, Total Bilirubin 7.30 H, AST 62 H, ALT 115 H, Alkaline Phosphatase 91, Total Protein 7.1, Albumin 3.9, Globulin 3.2, Albumin/Globulin Ratio 1.2 Radiology Impression Abdomen/Pelvis CT 07/01/22 20:14 IMPRESSION: 1. Moderate distention the stomach however no masses or wall thickening identified. 2. No bowel obstruction. Moderate amount retained formed stool in colon. Normal appendix. 3. No evidence of obstructive uropathy. 4. No radiodense calcifications in the gallbladder. Electronically Signed: Bj Cabrera MD at 22:18 EDT , Charges/Coding Visit Charges Inpatient E&M: 42596 Init Hosp L3
[2022-07-02] MEDS: Ondansetron 4 MG/2 ML Vial IV (08:24)
[2022-07-02] MEDS: Morphine 2 MG/ML Syringe 1 MG IV ×3 (08:24→22:14)
[2022-07-02] MEDS: 0.9% Saline Lock 10 ML Syringe IV ×5 (08:25→22:22)
[2022-07-02] MEDS: Ensure Plus High Protein 120 ML LIQUID PO (10:42)
[2022-07-02] MEDS: Polyethylene Glycol 3350 17 GM PACKET PO (22:22)
[2022-07-03 03:49] VITALS: BP 98/68; PULSE 62; RESP 16; TEMP 36.5; O2SAT 98
[2022-07-03 05:54] LABS: Absolute Lymphocyte Count 2.04 X10^3/uL (0.83-4.51); Absolute Neutrophil Count 2.1 X10^3/uL (2.0-7.7); Basophil# 0.02 X10^3/uL; Basophil% 0.4 % (0-1); Eosinophil# 0.14 X10^3/uL; Eosinophils% 2.7 % (0-5); Hematocrit 39.1 % (40-54); Hemoglobin 12.8 g/dL (13.0-16.5); Lymphocyte # 2.04 X10^3/ul (0.83-4.51); Lymphocyte % 39.5 % (19-41); Mean Corp Hgb Conc 32.7 g/dL (32-36); Mean Corpuscular Hgb 30.3 pg (27.0-32.0); Mean Corpuscular Volume 92.4 fL (80-94); Monocyte# 0.89 X10^3/uL; Monocyte% 17.2 % (0-10); NRBC Flagged by Analyzer 0 % (0-5); Neutrophil # 2.06 X10^3/uL (2.7-7.7); Platelet Count 227 K/mm3 (150-450); RBC Distribution Width CV 13.4 % (11.6-14.6); RBC Distribution Width SD 45.6 fl (35.1-43.9); Red Blood Count 4.23 M/mm3 (4.6-6.2); White Blood Count 5.2 K/mm3 (4.4-11.0)
[2022-07-03 06:30] LABS: ALB/GLOB Ratio 1.2 RATIO (0.9-2.4); AST(SGOT) 54 U/L (15-37); Alanine Aminotransfer ALT/SGPT 106 U/L (16-61); Albumin, Serum 3.8 g/dL (3.2-5.0); Alkaline Phosphatase 99 U/L (45-117); Anion Gap 5 (5-15); BUN 7 mg/dL (7-18); BUN/Creat Ratio 9.1 RATIO (10-20); Calcium,Total 9.2 mg/dL (8.5-10.1); Chloride 107 mmol/L (98-107); Creatinine, Serum 0.77 mg/dL (0.70-1.30); EST Glomerular Filtration Rate 137 mL/min (>60); Est Glom Filt Rate - Afr Amer 166 mL/min (>60); Estimated Creatinine Clearance 129.21 ml/min; Globulin 3.2 g/dL (2.2-4.2); Glucose 104 mg/dL (74-106); Potassium 4.1 mmol/L (3.5-5.1); Sodium Level 140 mmol/L (136-145)
--- NOTE | 2022-07-03 08:01 | CON.PCM.GI_ITS ---
HPI Consult Data Date of Consult: 07/03/22 HPI Narrative HPI Narrative: ZIGGY BLACKMON, is a 21 M who presents with abdominal pain. He presented to the emergency department with scleral icterus that started on the same day of presentation.? Associated with her symptoms is yellowish discoloration of his face.? Also for the past 2 months also patient has noticed belly pain.? Initially his pain was at the epigastric region and it felt like clogged.? Later his pain progressed to his right upper quadrant. His pain is episodic.? Intensity of his pain is 7-8 on a scale of 1-10.? His pain worsens with fatty foods.? He reported that if he if he eats apple? he does not have pain. However,? if he eats pizza, spaghetti and grilled cheese he has pain about 30 minutes thereafter.? He reports nausea and vomiting. He reports constipation with last bowel movement 2 to 3 days unlike his usual cycle of bowel movements every 1 to 2 days. ED doctor reports that on bedside ultrasound patient had gallstones without stone in the cystic duct. Of note patient had an ultrasound of his gallbladder on 05/08/2022 that showed distended gallbladder containing gallstones and sludge; and patient was instructed to follow-up outpatient. Also on 06/30/2022 patient was sent to ED and was diagnosed with acute gastritis and prescribed Zofran and sucralfate..? He was to continue his omeprazole. [facility] Medical History GERD (gastroesophageal reflux disease) Home Medications ondansetron 4 mg disintegrating tablet 8 mg PO Q8H PRN PRN Nausea #20 tabs 06/30/22 [Rx Last Taken 07/01/22] omeprazole 20 mg capsule,delayed release 20 mg PO DAILY GERD 07/02/22 [History Last Taken 07/01/22] sucralfate 1 gram tablet (Carafate) 1 g PO TID Check with primary doctor 07/02/22 [History Last Taken 07/01/22] Allergy/AdvReac Type Severity Reaction Status Date / Time No Known Allergies Allergy Verified 07/01/22 18:52 Family History Other Gallbladder disease Surgical History Hx of rhinoplasty Social History Smoking Status: Light Smoker (<10/day) ROS ROS Narrative Pertinent positives and pertinent negatives as noted in HPI. All other systems were reviewed and are negative Physical Exam Const alert, oriented x3 and no apparent distress HEENT normocephalic and head/scalp atraumatic Resp normal respiratory effort Cardio regular rate GI soft to palpation; Negative for non-distended Palpation: tender epigastric and RUQ; Negative for guarding Extremity no clubbing, cyanosis or edema Neuro CN's II-XII intact bilaterally Psych mental status grossly normal Lab / Micro Data Result Diagrams: 07/03/22 05:40 07/03/22 05:40 Labs: Laboratory Results - last 24 hr 07/03/22 05:40: WBC 5.2, RBC 4.23 L, Hgb 12.8 L, Hct 39.1 L, MCV 92.4, MCH 30.3, MCHC 32.7, RDW Std Deviation 45.6 H, RDW Coeff of Nancy 13.4, Plt Count 227, MPV 9.0, Immature Gran % (Auto) 0.200, Neut % (Auto) 40.0 L, Lymph % (Auto) 39.5, [place] % (Auto) 17.2 H, Eos % (Auto) 2.7, Baso % (Auto) 0.4, Absolute Neuts (auto) 2.1, Absolute Lymphs (auto) 2.04, Nucleated RBC % 0 07/03/22 05:40: Sodium 140, Potassium 4.1, Chloride 107, Carbon Dioxide 28.0, Anion Gap 5, BUN 7, Creatinine 0.77, Estim Creat Clear Calc 129.21, Est GFR (MDRD) Af Amer 166, Est GFR (MDRD) Non-Af 137, BUN/Creatinine Ratio 9.1 L, Glucose 104, Calcium 9.2, Total Bilirubin 6.70 H, AST 54 H, ALT 106 H, Alkaline Phosphatase 99, Total Protein 7.0, Albumin 3.8, Globulin 3.2, Albumin/Globulin Ratio 1.2 Assessment & Plan Assessment/Plan (1) Nausea and vomiting: (2) Epigastric abdominal pain: (3) Cholelithiasis: (4) Acquired hyperbilirubinemia: PLAN: Plan 21-year-old man with a slim build presented with recurrent postprandial epigastric fullness and bilious vomiting. He was acutely unwell. An abdominal radiograph showed gastric distention without clear duodenal distention. He has been having symptoms for the last 2 months. He recently noticed that he had jaundice. Approximately 2 months ago when he presented to the ED with abdominal pain he did have a mildly elevated bilirubin of 2. Currently his bilirubin has down to 6.7 which at his peak was 8.4. His AST to ALT ratio is less than 1. The differential diagnosis for this presentation an 20-year-old would be worse diaz gastroparesis in a patient that has a dilated stomach. Differential diagnosis for diabetic gastroparesis in this patient would be Arpita-Danlos syndrome, collagen vascular disease, autoimmune disease such as scleroderma, less likely Sjogren syndrome in a young male. This could be secondary to underlying superior mesenteric artery syndrome. He has lost approximately 15 pounds over the last 2 months. 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 Also the differential diagnosis does include underlying idiopathic gastroparesis, acute intermittent porphyria, Bertrand's disease, alpha-1 antitrypsin disease, less likely EBV or parvovirus infection. Currently his anti-smooth muscle antibody and antimitochondrial antibody along with autoimmune profile is pending. I would recommend a upper GI with small bowel follow-through and possible gastric emptying study. He will likely need an upper endoscopy due to the fact that he has been very large stomach. I would also recommend that we check EBV IgG and IgM, CMV IgG and IgM level, urine protoporphyrin's, ceruloplasmin copper levels, protein electrophoresis await autoimmune hepatitis labs. He would also need a confirmatory liver muscle kidney antibody. I think this is less likely a chronic problem however with his age he would not want to miss an underlying acute on chronic exacerbation of a chronic liver disease. Charges/Coding Visit Charges Inpatient E&M: 54748 Init Hosp L3
--- NOTE | 2022-07-03 08:11 | NM_ITS ---
CLINICAL: 21-year-old male with history of clinical gastric outlet syndrome, chronic nausea. SEMI-SOLID PHASE 99m Tc SULFUR COLLOID GASTRIC EMPTYING STUDY COMPARISON: CT of the abdomen-pelvis report 07/01/2022 FINDINGS: The patient was administered 1.1 mCi of 99m Tc sulfur colloid mixed with oatmeal and consumed per os. Image acquisitions in the anterior-posterior projections were obtained for 60 minutes. There is prompt visualization of the stomach. There is no gastroesophageal reflux identified. First order kinetics are maintained throughout the duration of the acquisitions. The T ? linear fit was extrapolated to be 316.87 minutes, (Normal: 12-56 minutes). NM/Gastric Emptying Study IMPRESSION: 1. ABNORMAL 99m Tc sulfur colloid semi-solid phase (oatmeal) gastric emptying imaging examination. A. There is delayed semi-solid phase gastric emptying compared to normal controls with maintained first order kinetics throughout all components of the examination. (Waylon tapia al, J Nucl Med Tech 38: 186, 2010). Electronically Signed: Bj Ozuna, at 12:47 EDT ,
[2022-07-03 08:44] VITALS: O2SAT 95
[2022-07-03 09:17] LABS: CRP < 2.90 mg/L (0.0-3.0)
[2022-07-03 09:34] LABS: Erythrocyte Sedimentation Rate 4 mm/hr (0-20)
--- NOTE | 2022-07-03 09:43 | CASEMGMT ---
OSCAR GALLARDO Assessment: Face to Face with pt for initial transition planning/care coordination assessment. RN PAULINA introduced self and role at [facility], pt voices understanding and consents to assessment. Pt is A/O x4 and answers all questions appropriately at this time. Pt sitting up in chair in no distress. Care providers, pharmacy, and demographics verified/updated. Admitting Dx: acute choledolithiasis PCP:[facility] Specialists:Pt denies. Preferred [facility]acy: [facility] Insurance: [facility] Prescription Benefit: yes LNOK: Tamika Field, mother; Andrew Field, uncle Living Arrangements: Pt lives with girlfriend, their 2 year old child and his girlfriend's father. Pt reports he is I in ADL's and denies concerns at home. Transportation: Pt does not drive. Pt family transports him as needed. DME/HHC/SNF: Pt denies having any DME, hx of HHC or SNF stays. Pt states no concerns with going home at time of dc. Pt states no further concerns/needs. CM to follow. Advised pt to ask CM if any further question/concerns/needs arise, voices understanding. Pt Goal: Home Plan: Home
[2022-07-03 09:45] VITALS: BP 113/78; PULSE 82; RESP 16; TEMP 36.4; O2SAT 98
[2022-07-03] MEDS: 0.9% Saline Lock 10 ML Syringe IV ×3 (10:04→18:24)
--- NOTE | 2022-07-03 10:46 | PCM.PN.SRG ---
Subjective Subjective Patient is a 21 y/o M I am following for abdominal pain and elevated LFT's. Patient notes his abdominal pain/discomfort has resolved. He denies nausea. He denies any further vomiting. Objective Data Objective Data Vital Signs: Vital Signs Temp Pulse Resp BP Pulse Ox O2 Del Method 97.6 F L 82 16 113/78 98 Room Air 07/03/22 09:45 07/03/22 09:45 07/03/22 09:45 07/03/22 09:45 07/03/22 09:45 07/03/22 09:45 Oxygen Delivery Method Room Air Weight: 130 lb 8.218 oz Body Mass Index (BMI) 18.1 Intake & Output: Intake and Output for Last 24 Hours 07/01/22 07/02/22 07/03/22 23:59 23:59 23:59 Intake Total 1000 / 1000 1715 / 1715 1200 / 1200 Balance 1000 / 1000 1715 / 1715 1200 / 1200 Lab / Micro Data Result Diagrams: 07/03/22 05:40 07/03/22 05:40 Labs: Laboratory Results - last 24 hr 07/03/22 05:40: WBC 5.2, RBC 4.23 L, Hgb 12.8 L, Hct 39.1 L, MCV 92.4, MCH 30.3, MCHC 32.7, RDW Std Deviation 45.6 H, RDW Coeff of Nancy 13.4, Plt Count 227, MPV 9.0, Immature Gran % (Auto) 0.200, Neut % (Auto) 40.0 L, Lymph % (Auto) 39.5, [place] % (Auto) 17.2 H, Eos % (Auto) 2.7, Baso % (Auto) 0.4, Absolute Neuts (auto) 2.1, Absolute Lymphs (auto) 2.04, Nucleated RBC % 0 07/03/22 05:40: Sodium 140, Potassium 4.1, Chloride 107, Carbon Dioxide 28.0, Anion Gap 5, BUN 7, Creatinine 0.77, Estim Creat Clear Calc 129.21, Est GFR (MDRD) Af Amer 166, Est GFR (MDRD) Non-Af 137, BUN/Creatinine Ratio 9.1 L, Glucose 104, Calcium 9.2, Total Bilirubin 6.70 H, AST 54 H, ALT 106 H, Alkaline Phosphatase 99, Total Protein 7.0, Albumin 3.8, Globulin 3.2, Albumin/Globulin Ratio 1.2 07/03/22 05:40: ESR 4 07/03/22 05:40: C-React Prot Ext Range < 2.90 Physical Exam GI normal to inspection, nondistended, normoactive bowel sounds Palpation: tender epigastric (minimal ) Assessment & Plan Assessment/Plan (1) Epigastric abdominal pain: PLAN: I am following this patient in conjunction with Dr. Ng. Patient's LFT's have decreased today. Patient is not presenting as an acute cholecystitis patient. Dr. Solis has been consulted and has indicated multiple differential diagnosis including SMA syndrome. Patient is scheduled for a gastric emptying study today and Dr. Solis will plan to perform an upper scope at some point. No further surgical intervention is being recommended at this time. We will continue to monitor this patient. Charges/Coding Visit Charges Inpatient E&M: 72759 Subs Hosp L1
[2022-07-03 10:48] LABS: Bilirubin, Direct 4.54 mg/dL (0.00-0.30)
[2022-07-03 13:53] VITALS: BP 101/68; PULSE 58; RESP 16; TEMP 37.2; O2SAT 100
--- NOTE | 2022-07-03 15:01 | PN.HOSP_ITS ---
Reason for Visit Reason for Visit: Diagnoses Other disorders of bilirubin metabolism (07/01/22) Constipation, unspecified (07/01/22) Calculus of gallbladder without cholecystitis without obstruction (07/01/22) Calculus of bile duct without cholangitis or cholecystitis without obstruction (07/01/22) Right upper quadrant pain (07/01/22) Epigastric pain (07/01/22) Nausea with vomiting, unspecified (07/01/22) Follow-up for jaundice and right upper quadrant abdominal pain. Objective Data Objective Data Vital Signs: Vital Signs Temp Pulse Resp BP Pulse Ox O2 Del Method 99.0 F 58 L 16 101/68 100 Room Air 07/03/22 13:53 07/03/22 13:53 07/03/22 13:53 07/03/22 13:53 07/03/22 13:53 07/03/22 13:53 Oxygen Delivery Method Room Air Weight: 130 lb 8.218 oz Body Mass Index (BMI) 18.1 Intake & Output: Intake and Output for Last 24 Hours 07/01/22 07/02/22 07/03/22 23:59 23:59 23:59 Intake Total 1000 / 1000 1715 / 1715 1334 / 1334 Balance 1000 / 1000 1715 / 1715 1334 / 1334 Lab / Micro Data Result Diagrams: 07/03/22 05:40 07/03/22 05:40 Labs: Laboratory Results - last 24 hr 07/03/22 05:40: WBC 5.2, RBC 4.23 L, Hgb 12.8 L, Hct 39.1 L, MCV 92.4, MCH 30.3, MCHC 32.7, RDW Std Deviation 45.6 H, RDW Coeff of Nancy 13.4, Plt Count 227, MPV 9.0, Immature Gran % (Auto) 0.200, Neut % (Auto) 40.0 L, Lymph % (Auto) 39.5, [place] % (Auto) 17.2 H, Eos % (Auto) 2.7, Baso % (Auto) 0.4, Absolute Neuts (auto) 2.1, Absolute Lymphs (auto) 2.04, Nucleated RBC % 0 07/03/22 05:40: Sodium 140, Potassium 4.1, Chloride 107, Carbon Dioxide 28.0, Anion Gap 5, BUN 7, Creatinine 0.77, Estim Creat Clear Calc 129.21, Est GFR (MDRD) Af Amer 166, Est GFR (MDRD) Non-Af 137, BUN/Creatinine Ratio 9.1 L, Glucose 104, Calcium 9.2, Total Bilirubin 6.70 H, AST 54 H, ALT 106 H, Alkaline Phosphatase 99, Total Protein 7.0, Albumin 3.8, Globulin 3.2, Albumin/Globulin Ratio 1.2 07/03/22 05:40: ESR 4 07/03/22 05:40: C-React Prot Ext Range < 2.90 07/03/22 05:40: Direct Bilirubin 4.54 H Radiography Diagnostic Testing: Radiology Impression Gastric Emptying Nuclear Medicine 07/03/22 08:11 IMPRESSION: 1. ABNORMAL 99m Tc sulfur colloid semi-solid phase (oatmeal) gastric emptying imaging examination. A. There is delayed semi-solid phase gastric emptying compared to normal controls with maintained first order kinetics throughout all components of the examination. (Waylon et al, J Nucl Med Tech 38: 186, 2010). Electronically Signed: Bj Ozuna, at 12:47 EDT , Physical Exam Narrative Seen and examined. Patient denies any fever or chills. Denies chronic alcohol use disorder or polysubstance use. He states he drinks 1 or 2 drinks in 1 month. Physical exam: General: Alert, Oriented x3, Cooperative HEENT: Atraumatic, PERRLA, EOMI, Normocephalic Oral: No Gingival or Mucosal Lesions/ Ulcerations Neck: Supple, No JVD, Negative Carotid Bruits Lungs: Air entry diminished in bilateral lung bases. No crepitation/rhonchi Cardiovascular: Regular rate, Regular Rhythm, Normal S1, Normal S2, No murmurs Abdomen: Bowel Sounds Present, Soft, mild tenderness over right upper quadrant. Liver not enlarged. Spleen not palpable. : No renal angle tenderness. No suprapubic tenderness. Extremities: No edema, Capillary Refill Less than 3 Seconds Skin: No rashes, No breakdown Musculoskeletal: No Tenderness to Palpation of Joints or Extremities. Range of motion adequate and full. Neurological: Cranial nerves II-XII grossly intact, DTR 2+/4 and Symmetrical, Neuro grossly intact Psych/Mental Status: Normal Affect, Appropriate. Assessment & Plan Assessment/Plan (1) Biliary colic: (2) Cholelithiasis: (3) Acquired hyperbilirubinemia: (4) Constipation: PLAN: Plan 21-year-old gentleman was admitted with recurrent postprandial epigastric fullness and bilious vomiting and jaundice. Patient also with right upper quadrant abdominal pain. 1. Acquired direct hyperbilirubinemia with right upper quadrant abdominal pain: Patient is being admitted to [facility] floor. About 2 months ago patient had total bilirubin 2 but this admission peaked to 8.4 and then improving 6.7. AST ALT ratio less than 1. Mainly direct hyperbilirubinemia. Alkaline phosphatase normal. Answering Service Agent consulted. Patient has autoimmune antibodies ordered. Upper GI with a small bowel follow-through and gastric emptying study also ordered. Infectious hepatitis work-up including EBV, CMV, urine protoporphyrin, ceruloplasmin, protein electrophoresis and autoimmune hepatitis work-up ordered. CT abdomen reported moderate distention of the stomach with no mass or wall thickening. No bowel obstruction with moderate retained stool in colon. No obstructive uropathy. Normal appendix. GB reported unremarkable. No evidence of ductal dilatation. Liver homogeneous and no focal lesion. Gastric emptying study reported abnormal with delayed semisolid gastric emptying study. Patient had ultrasound of gallbladder on 05/08/2022 that showed distended GB with gallstones and sludge. Bedside ultrasound in ED by ED physician also showed gallstones without stone in the cystic duct. Suspicion for biliary colic with abdominal pain worsens or fatty food. Patient was evaluated by surgery and thinks clinical picture is not entirely typical for gallbladder disease with normal alkaline phosphatase and no leukocytosis. Tube constipation -Seen on CT -Bowel regimen #DVT ppx: Low risk Clinical Impression(s) from Imaging Studies Abdomen/Pelvis CT 07/01/22 20:14 IMPRESSION: 1. Moderate distention the stomach however no masses or wall thickening identified. 2. No bowel obstruction. Moderate amount retained formed stool in colon. Normal appendix. 3. No evidence of obstructive uropathy. 4. No radiodense calcifications in the gallbladder. Electronically Signed: Bj Cabrera MD at 22:18 EDT , Gastric Emptying Nuclear Medicine 07/03/22 08:11 IMPRESSION: 1. ABNORMAL 99m Tc sulfur colloid semi-solid phase (oatmeal) gastric emptying imaging examination. A. There is delayed semi-solid phase gastric emptying compared to normal controls with maintained first order kinetics throughout all components of the examination. (Waylon et al, J Nucl Med Tech 38: 186, 2010). Electronically Signed: Bj Ozuna, at 12:47 EDT , Charges/Coding Visit Charges Inpatient E&M: 42710 Subs Hosp L2
[2022-07-03] MEDS: Morphine 2 MG/ML Syringe 1 MG IV (15:17)
[2022-07-03] MEDS: Ondansetron 4 MG/2 ML Vial IV ×2 (18:24→20:48)
--- NOTE | 2022-07-03 18:30 | NURSING ---
Pt states he is nauseated and vomited 3 times in a short period of time. Pt states he was sleeping shortly after his pain medication given to him by This RN. Pt awakened to eat and ate 2 bites of food and started feeling sick then vomited. This RN came to room at this time and pt is vomiting.
[2022-07-03 19:59] VITALS: BP 103/69; PULSE 68; RESP 16; TEMP 36.8; O2SAT 98
[2022-07-03] MEDS: 0.9% Normal Saline 1,000 ML 100 ML IV (21:40)
[2022-07-03] MEDS: Polyethylene Glycol 3350 17 GM PACKET PO (21:42)
[2022-07-03] MEDS: Senna/Docusate Sodium 1 Tablet 2 TABLET PO (21:42)
[2022-07-04] VITALS (11 sets, daily range): BP systolic 91–115; BP diastolic 59–74; PULSE 62–115; RESP 16–18; TEMP 36.3–36.9; O2SAT 89–100; BMI 18.1
[2022-07-04 01:09] LABS: Amphetamine Urine VISTA NEGATIVE (<1000 ng/mL); Barbiturate Urine VISTA NEGATIVE (< 200 ng/mL); Benzodiazepine Urine VISTA NEGATIVE (< 200 ng/mL); Cocaine Urine VISTA NEGATIVE (< 300 ng/mL); Ecstacy Urine VISTA NEGATIVE (< 500 ng/mL); Methadone Urine VISTA NEGATIVE (< 300 ng/mL); PCP Urine VISTA NEGATIVE (< 25 ng/mL); THC Urine VISTA POSITIVE (< 50 ng/mL); Vista UDS pH Range 5
[2022-07-04] MEDS: Morphine 2 MG/ML Syringe 1 MG IV ×3 (02:18→11:02)
--- NOTE | 2022-07-04 02:43 | NURSING ---
Unable to waste 1mg IV morphine in [facility]UD[facility]. Wasted 1mg IV morphine in RX destroyer witnessed by Miguel Castillo and Tram Baez, Charge nurse will contact pharmacy about discrepancy
--- NOTE | 2022-07-04 03:35 | NURSING ---
Pt started 24 hour urine collection at 0220 07/04/22.
[2022-07-04] MEDS: Ondansetron 4 MG/2 ML Vial IV (04:50)
[2022-07-04 05:07] LABS: Ceruloplasmin 17.2 mg/dL (16.0-31.0)
[2022-07-04 05:25] LABS: Absolute Lymphocyte Count 0.94 X10^3/uL (0.83-4.51); Absolute Neutrophil Count 8.6 X10^3/uL (2.0-7.7); Basophil# 0.01 X10^3/uL; Basophil% 0.1 % (0-1); Eosinophil# 0.03 X10^3/uL; Eosinophils% 0.3 % (0-5); Hematocrit 42.5 % (40-54); Hemoglobin 14.4 g/dL (13.0-16.5); Lymphocyte # 0.94 X10^3/ul (0.83-4.51); Lymphocyte % 9.2 % (19-41); Mean Corp Hgb Conc 33.9 g/dL (32-36); Mean Corpuscular Hgb 31.1 pg (27.0-32.0); Mean Corpuscular Volume 91.8 fL (80-94); Mean Platelet Vol. 9.1 fl (6.2-12.0); Monocyte# 0.67 X10^3/uL; Monocyte% 6.5 % (0-10); NRBC Flagged by Analyzer 0 % (0-5); Neutrophil # 8.57 X10^3/uL (2.7-7.7); Neutrophil % 83.6 % (47-70); Platelet Count 273 K/mm3 (150-450); RBC Distribution Width CV 13.2 % (11.6-14.6); RBC Distribution Width SD 45.1 fl (35.1-43.9); Red Blood Count 4.63 M/mm3 (4.6-6.2); White Blood Count 10.3 K/mm3 (4.4-11.0)
[2022-07-04 05:45] LABS: International Normalized Ratio 1.1; Prothrombin Time (Protime)PT. 13.7 SECONDS (11.7-14.9)
[2022-07-04 05:47] LABS: Partial Thromboplast Time 28.4 Seconds (24.1-36.2)
[2022-07-04] MEDS: 0.9% Normal Saline 1,000 ML 100 ML IV (06:35)
--- NOTE | 2022-07-04 08:20 | RAD_ITS ---
PROCEDURE: Upper GI with Small Bowel Follow Through DATE OF EXAMINATION: July 04, 2022. INDICATION: Male, 21 years old. Patient has a history of a SMA syndrome. Right lower quadrant pain. FLUOROSCOPY TIME (if supplied): (0:48) minutes/seconds. 17 spot images were obtained. 16.71 mGy TECHNIQUE: Radiographic and fluoroscopic images of the distal esophagus, stomach, and entire small intestine were obtained following the oral ingestion of barium. COMPARISON: None. FINDINGS: The parachute folder film of the abdomen demonstrates a normal bowel gas pattern. There are no abnormal calcifications or organomegaly demonstrated. The visualized osseous structures are normal. Esophagus is unremarkable. No evidence of gastroesophageal reflux. No evidence of obstruction. The stomach and duodenum are unremarkable. Following this, the patient vomited. Imaging of the small bowel was limited due to the decreased volume of ingested barium. Images of the small bowel were done at 60 minutes following the ingestion. No evidence of bowel obstruction. Moderate amount of fecal material is seen in the colon. RAD/Upper GI/w Small Bowel IMPRESSION: 1. Unremarkable upper GI series and esophagram. Electronically Signed: Salvatore Levin MD at 10:07 EDT ,
--- NOTE | 2022-07-04 08:37 | PCM.PN.HOSP ---
Reason for Visit Reason for Visit: Diagnoses Other disorders of bilirubin metabolism (07/01/22) Constipation, unspecified (07/01/22) Calculus of gallbladder without cholecystitis without obstruction (07/01/22) Calculus of bile duct without cholangitis or cholecystitis without obstruction (07/01/22) Right upper quadrant pain (07/01/22) Epigastric pain (07/01/22) Nausea with vomiting, unspecified (07/01/22) Subjective Subjective Patient scheduled for upper GI series and EGD. Objective Data Objective Data Vital Signs: Vital Signs Temp Pulse Resp BP Pulse Ox O2 Del Method 98.5 F 66 18 113/68 100 Room Air 07/04/22 08:00 07/04/22 08:00 07/04/22 08:00 07/04/22 08:00 07/04/22 08:00 07/04/22 08:00 Oxygen Delivery Method Room Air Weight: 130 lb 8.218 oz Body Mass Index (BMI) 18.1 Intake & Output: Intake and Output for Last 24 Hours 07/02/22 07/03/22 07/04/22 23:59 23:59 23:59 Intake Total 1715 / 1715 1555 / 2055 1565.00 / 1565.00 Output Total 200 / 200 Balance 1715 / 1715 1555 / 1855 1365.00 / 1365.00 Lab / Micro Data Result Diagrams: 07/04/22 05:12 07/03/22 05:40 Labs: Laboratory Results - last 24 hr 07/02/22 00:10: Ceruloplasmin 17.2 07/03/22 05:40: ESR 4 07/03/22 05:40: C-React Prot Ext Range < 2.90 07/03/22 05:40: Direct Bilirubin 4.54 H 07/04/22 00:40: Urine Opiates Screen POSITIVE H, Urine Methadone Screen NEGATIVE, Ur Barbiturates Screen NEGATIVE, Ur Phencyclidine Scrn NEGATIVE, Ur Amphetamines Screen NEGATIVE, MDMA (Ecstasy) Screen NEGATIVE, U Benzodiazepines Scrn NEGATIVE, Urine Cocaine Screen NEGATIVE, U Cannabinoids Screen POSITIVE H, Ur Drug Screen Comment 07/04/22 05:12: WBC 10.3, RBC 4.63, Hgb 14.4, Hct 42.5, MCV 91.8, MCH 31.1, MCHC 33.9, RDW Std Deviation 45.1 H, RDW Coeff of Nancy 13.2, Plt Count 273, MPV 9.1, Immature Gran % (Auto) 0.300, Neut % (Auto) 83.6 H, Lymph % (Auto) 9.2 L, [place] % (Auto) 6.5, Eos % (Auto) 0.3, Baso % (Auto) 0.1, Absolute Neuts (auto) 8.6 H, Absolute Lymphs (auto) 0.94, Nucleated RBC % 0 07/04/22 05:12: PT 13.7, INR 1.1, APTT 28.4 Radiography Diagnostic Testing: Radiology Impression Gastric Emptying Nuclear Medicine 07/03/22 08:11 IMPRESSION: 1. ABNORMAL 99m Tc sulfur colloid semi-solid phase (oatmeal) gastric emptying imaging examination. A. There is delayed semi-solid phase gastric emptying compared to normal controls with maintained first order kinetics throughout all components of the examination. (Waylon et al, J Nucl Med Tech 38: 186, 2010). Electronically Signed: Bj Ozuna, at 12:47 EDT , Physical Exam Narrative Seen and examined. No fever or chills. Denies abdominal pain. Patient vomited after upper GI series. Patient had mild abdominal and left lower quadrant at the time of upper GI series. Scheduled for EGD with Dr. Solis. Physical exam: General: Alert, Oriented x3, Cooperative HEENT: Atraumatic, PERRLA, EOMI, Normocephalic Oral: No Gingival or Mucosal Lesions/ Ulcerations Neck: Supple, No JVD, Negative Carotid Bruits Lungs: Air entry diminished in bilateral lung bases. No crepitation/rhonchi Cardiovascular: Regular rate, Regular Rhythm, Normal S1, Normal S2, No murmurs Abdomen: Bowel Sounds Present, Soft, mild tenderness over RUQ. Liver not enlarged. Spleen not palpable. : No renal angle tenderness. No suprapubic tenderness. Extremities: No edema, Capillary Refill Less than 3 Seconds Skin: No rashes, No breakdown Musculoskeletal: No Tenderness to Palpation of Joints or Extremities. Range of motion adequate and full. Neurological: Cranial nerves II-XII grossly intact, DTR 2+/4 and Symmetrical, Neuro grossly intact Psych/Mental Status: Normal Affect, Appropriate. Assessment & Plan Assessment/Plan (1) Biliary colic: (2) Cholelithiasis: (3) Acquired hyperbilirubinemia: (4) Constipation: PLAN: Plan 21-year-old gentleman was admitted with recurrent postprandial epigastric fullness and bilious vomiting and jaundice. Patient also with right upper quadrant abdominal pain. 1. Acquired direct hyperbilirubinemia with right upper quadrant abdominal pain: Patient is being admitted to [facility] floor. About 2 months ago patient had total bilirubin 2 but this admission peaked to 8.4 and then improving 6.7. AST ALT ratio less than 1. Mainly direct hyperbilirubinemia. Alkaline phosphatase normal. [employer] consulted. Patient has autoimmune antibodies ordered. Upper GI with a small bowel follow-through and gastric emptying study also ordered. Infectious hepatitis work-up including EBV, CMV, urine protoporphyrin, ceruloplasmin, protein electrophoresis and autoimmune hepatitis work-up ordered. CT abdomen reported moderate distention of the stomach with no mass or wall thickening. No bowel obstruction with moderate retained stool in colon. No obstructive uropathy. Normal appendix. GB reported unremarkable. No evidence of ductal dilatation. Liver homogeneous and no focal lesion. Gastric emptying study reported abnormal with delayed semisolid gastric emptying study. Patient had ultrasound of gallbladder on 05/08/2022 that showed distended GB with gallstones and sludge. Bedside ultrasound in ED by ED physician also showed gallstones without stone in the cystic duct. Suspicion for biliary colic with abdominal pain worsens or fatty food. Patient was evaluated by surgery and thinks clinical picture is not entirely typical for gallbladder disease with normal alkaline phosphatase and no leukocytosis. 07/04: Upper GI series reported unremarkable. Patient had vomiting during upper GI series. EGD reported gastritis, LA grade a reflux esophagitis. Excessive gastric fluid. Congested duodenal mucosa. Full liquid diet. Metoclopramide 10 mg p.o. 30 minutes before meals and at bedtime. Azithromycin 500 mg IV every 24 hourly. Mild chronic constipation -Seen on CT -Bowel regimen #DVT ppx: Low risk Clinical Impression(s) from Imaging Studies Abdomen/Pelvis CT 07/01/22 20:14 IMPRESSION: 1. Moderate distention the stomach however no masses or wall thickening identified. 2. No bowel obstruction. Moderate amount retained formed stool in colon. Normal appendix. 3. No evidence of obstructive uropathy. 4. No radiodense calcifications in the gallbladder. Electronically Signed: Bj Cabrera MD at 22:18 EDT , Gastric Emptying Nuclear Medicine 07/03/22 08:11 IMPRESSION: 1. ABNORMAL 99m Tc sulfur colloid semi-solid phase (oatmeal) gastric emptying imaging examination. A. There is delayed semi-solid phase gastric emptying compared to normal controls with maintained first order kinetics throughout all components of the examination. (Waylon et al, J Nucl Med Tech 38: 186, 2010). Electronically Signed: Bj Ozuna at 12:47 EDT , Charges/Coding Visit Charges Inpatient E&M: 74627 Subs Hosp L2
[2022-07-04 09:03] LABS: AST(SGOT) 84 U/L (15-37); Alanine Aminotransfer ALT/SGPT 140 U/L (16-61); Albumin, Serum 4.1 g/dL (3.2-5.0); Alkaline Phosphatase 123 U/L (45-117); Bilirubin, Direct 6.06 mg/dL (0.00-0.30); Globulin 3.7 g/dL (2.2-4.2); Protein, Total 7.8 g/dL (6.4-8.2)
[2022-07-04] MEDS: 0.9% Saline Lock 10 ML Syringe IV ×2 (09:49→11:02)
[2022-07-04] MEDS: Metoclopramide 10 MG/2 ML Vial 5 MG IV ×2 (09:50→20:25)
[2022-07-04 13:08] LABS: ANTINUCLEAR ANTIBODIES DIRECT Negative (Negative)
[2022-07-04 14:09] LABS: Anti-Smooth Muscle ABS 12 Units (0-19); HEPATITIS B SURFACE AG Negative (Negative); Hep C Antibodies Non Reactive (Non Reactive); Hepatitis A IgM Antibody Negative (Negative); Hepatitis B Core AB IgM Negative (Negative)
[2022-07-04 14:09] LABS: Anti-Mitochondrial AB <20.0 Units (0.0-20.0)
--- NOTE | 2022-07-04 14:49 | PN.SURG_ITS ---
Subjective Subjective Patient currently denies abdominal pain. Patient did state he did vomit with the upper GI after their first initial x-rays. Patient states pain is more in the left lower abdomen currently but only at 2/10. Patient gastric emptying study that was abnormal yesterday, upper GI was read as normal however patient did vomit up approximately half the contents of the stomach in the middle of it. Patient is scheduled for an EGD later today with Dr. Solis. Objective Data Objective Data Vital Signs: Vital Signs Temp Pulse Resp BP Pulse Ox O2 Del Method 98.5 F 66 18 113/68 98 Room Air 07/04/22 08:00 07/04/22 08:00 07/04/22 08:00 07/04/22 08:00 07/04/22 08:53 07/04/22 08:53 Oxygen Delivery Method Room Air Weight: 130 lb 8.218 oz Body Mass Index (BMI) 18.1 Intake & Output: Intake and Output for Last 24 Hours 07/02/22 07/03/22 07/04/22 23:59 23:59 23:59 Intake Total 1715 / 1715 1555 / 2055 1675.00 / 1675.00 Output Total 200 / 200 Balance 1715 / 1715 1555 / 1855 1475.00 / 1475.00 Lab / Micro Data Result Diagrams: 07/04/22 05:12 07/03/22 05:40 Labs: Laboratory Results - last 24 hr 07/02/22 00:10: Anti-Mitochondrial Ab <20.0 07/02/22 00:10: Ceruloplasmin 17.2 07/02/22 05:38: Anti-Smooth Muscle Ab 12, Hepatitis A IgM Ab Negative, Hep Bs Antigen Negative, Hep B Core IgM Ab Negative, Hepatitis C Ab (EIA) Non Reactive, Hep C Ab Comment Comment 07/02/22 05:38: RU Screen Negative 07/04/22 00:40: Urine Opiates Screen POSITIVE H, Urine Methadone Screen NEGATIVE, Ur Barbiturates Screen NEGATIVE, Ur Phencyclidine Scrn NEGATIVE, Ur Amphetamines Screen NEGATIVE, MDMA (Ecstasy) Screen NEGATIVE, U Benzodiazepines Scrn NEGATIVE, Urine Cocaine Screen NEGATIVE, U Cannabinoids Screen POSITIVE H, Ur Drug Screen Comment 07/04/22 05:12: WBC 10.3, RBC 4.63, Hgb 14.4, Hct 42.5, MCV 91.8, MCH 31.1, MCHC 33.9, RDW Std Deviation 45.1 H, RDW Coeff of Nancy 13.2, Plt Count 273, MPV 9.1, Immature Gran % (Auto) 0.300, Neut % (Auto) 83.6 H, Lymph % (Auto) 9.2 L, [place] % (Auto) 6.5, Eos % (Auto) 0.3, Baso % (Auto) 0.1, Absolute Neuts (auto) 8.6 H, Absolute Lymphs (auto) 0.94, Nucleated RBC % 0 07/04/22 05:12: PT 13.7, INR 1.1, APTT 28.4 07/04/22 05:12: Total Bilirubin 8.50 H, Direct Bilirubin 6.06 H, AST 84 H, ALT 140 H, Alkaline Phosphatase 123 H, Total Protein 7.8, Albumin 4.1, Globulin 3.7 Radiography Diagnostic Testing: Radiology Impression Upper GI and Small Bowel X-Ray 07/04/22 08:20 IMPRESSION: 1. Unremarkable upper GI series and esophagram. Electronically Signed: Salvatore Levin MD at 10:07 EDT Reading Location ID and State: [facility] / [place] , Service support , Physical Exam Const alert, oriented x3 and no apparent distress Resp normal respiratory effort Cardio regular rate GI soft to palpation; Negative for non-distended Palpation: tender LLQ; Negative for guarding Assessment & Plan Assessment/Plan (1) RUQ abdominal pain: (2) Epigastric abdominal pain: (3) Cholelithiasis: (4) Acquired hyperbilirubinemia: PLAN: Plan Scheduled for an EGD with Dr. Solis. No plans for any acute surgical intervention. Holly Ng M.D. Pager: [phone] [facility] [address] [place] [address], [facility], [address] [place] [address] Office: [phone] Charges/Coding Visit Charges Inpatient E&M: 33682 Subs Hosp L2
[2022-07-04] MEDS: Lactated Ringers 1,000 ML 15 ML IV (16:32)
--- NOTE | 2022-07-04 17:53 | OP.EGD_ITS ---
Patient Name: Brenden Voss Procedure Date: 07/04/2022 5:21 PM Date of : 2000 Age: 21 Procedure: Upper GI endoscopy Indications: Epigastric abdominal pain Providers: Alexei Solis DO Medicines: Monitored Anesthesia Care Patient Profile: This is a 21 year old male. Refer to note in patient chart for documentation of history and physical. Patient has symptoms of chronic abdominal cramping, chronic abdominal distention and acute epigastric abdominal pain. Complications: No immediate complications. Procedure: Pre-Anesthesia Assessment: - Prior to the procedure, a History and Physical was performed, and patient medications and allergies were reviewed. The risks and benefits of the procedure and the sedation options and risks were discussed with the patient. All questions were answered and informed consent was obtained. Patient identification and proposed procedure were verified by the physician. Mental Status Examination: normal. Prophylactic Antibiotics: The patient does not require prophylactic antibiotics. Prior Anticoagulants: The patient has taken no previous anticoagulant or antiplatelet agents. After reviewing the risks and benefits, the patient was deemed in satisfactory condition to undergo the procedure. The anesthesia plan was to use monitored anesthesia care (MAC). Immediately prior to administration of medications, the patient was re-assessed for adequacy to receive sedatives. The heart rate, respiratory rate, oxygen saturations, blood pressure, adequacy of pulmonary ventilation, and response to care were monitored throughout the procedure. The physical status of the patient was re-assessed after the procedure. - Prior to the procedure, a History and Physical was performed, and patient medications and allergies were reviewed. The patient is competent. The risks and benefits of the procedure and the sedation options and risks were discussed with the patient. All questions were answered and informed consent was obtained. Patient identification and proposed procedure were verified by the physician. Mental Status Examination: normal. CV Examination: normal. Prophylactic Antibiotics: The patient does not require prophylactic antibiotics. Prior Anticoagulants: The patient has taken heparin [Days Prior to Procedure]. [ASA Grade]. After reviewing the risks and benefits, the patient was deemed in satisfactory condition to undergo the procedure. [Anesthesia Plan]. Immediately prior to administration of medications, the patient was re-assessed for adequacy to receive sedatives. The heart rate, respiratory rate, oxygen saturations, blood pressure, adequacy of pulmonary ventilation, and response to care were monitored throughout the procedure. The physical status of the patient was re-assessed after the procedure. After obtaining informed consent, the endoscope was passed under direct vision. Throughout the procedure, the patient's blood pressure, pulse, and oxygen saturations were monitored continuously. The gastroscope was introduced through the mouth, and advanced to the second part of duodenum. The upper GI endoscopy was accomplished without difficulty. The patient tolerated the procedure well. Scope In: 5:29:50 PM Scope Out: 5:34:46 PM Total Procedure Duration Time 0 hours 4 minutes 56 seconds Findings: LA Grade A (one or more mucosal breaks less than 5 mm, not extending between tops of 2 mucosal folds) esophagitis with no bleeding was found 37 to 39 cm from the incisors. Biopsies were taken with a cold forceps for histology. Verification of patient identification for the specimen was done. Estimated blood loss was minimal. Diffuse mild inflammation characterized by congestion (edema) and erythema was found in the gastric body. Excessive fluid was found in the stomach. Fluid aspiration was performed through the scope suction channel. The amount of fluid collected was 500 mL. Sample(s) were sent for pH determination. Verification of patient identification for the specimen was done. Estimated blood loss was minimal. Diffuse moderately congested mucosa without active bleeding and with no stigmata of bleeding was found in the second portion of the duodenum. Impression: - LA Grade A reflux esophagitis. Biopsied. - Gastritis. - Excessive gastric fluid. Fluid aspiration performed. - Congested duodenal mucosa. Recommendation: - [facility]. - Full liquid diet. - Use metoclopramide 10 mg PO QID; 30 min AC and HS. - Use azithromycin 500 mg IV q 6 hr. - Continue present medications. Procedure Code(s): --- Professional --- 50660, Esophagogastroduodenoscopy, flexible, transoral; with biopsy, single or multiple CPT copyright 2017 [employer]. All rights reserved. The codes documented in this report are preliminary and upon squadron worker review may be revised to meet current compliance requirements. Alexei Solis DO 07/04/2022 5:53:00 PM This report has been signed electronically. Number of Addenda: 0 Note Initiated On: 07/04/2022 5:21 PM
--- NOTE | 2022-07-04 17:54 | OP.CCLET_ITS ---
07/04/2022 Gurpreet Cornelius [address] [place] [address] Re : Upper GI endoscopy procedure for Brenden Voss Dear Dr. Cornelius This procedure was performed on Monday, July 04, 2022. My impressions and recommendations are as follows: Impressions : - LA Grade A reflux esophagitis. Biopsied. - Gastritis. - Excessive gastric fluid. Fluid aspiration performed. - Congested duodenal mucosa. Recommendations : - [facility]. - Full liquid diet. - Use metoclopramide 10 mg PO QID; 30 min AC and HS. - Use azithromycin 500 mg IV q 6 hr. - Continue present medications. My findings are described in the full procedure note, which is enclosed. If I can be of further assistance, please feel free to contact me at . Sincerely, Alexei Friend, 07/04/2022 5:53:00 PM This report has been signed electronically.
[2022-07-04] MEDS: Polyethylene Glycol 3350 17 GM PACKET PO (22:44)
[2022-07-04] MEDS: Senna/Docusate Sodium 1 Tablet 2 TABLET PO (22:44)
[2022-07-05] MEDS: Metoclopramide 10 MG/2 ML Vial 5 MG IV ×2 (00:08→05:05)
[2022-07-05 02:50] VITALS: BP 102/70; PULSE 75; RESP 18; TEMP 36.8; O2SAT 97
--- NOTE | 2022-07-05 07:15 | PN.HOSP_ITS ---
Reason for Visit Reason for Visit: Diagnoses Other disorders of bilirubin metabolism (07/01/22) Constipation, unspecified (07/01/22) Calculus of gallbladder without cholecystitis without obstruction (07/01/22) Calculus of bile duct without cholangitis or cholecystitis without obstruction (07/01/22) Right upper quadrant pain (07/01/22) Epigastric pain (07/01/22) Nausea with vomiting, unspecified (07/01/22) Objective Data Objective Data Vital Signs: Vital Signs Temp Pulse Resp BP Pulse Ox O2 Del Method 98.2 F 75 18 102/70 97 Room Air 07/05/22 02:50 07/05/22 02:50 07/05/22 02:50 07/05/22 02:50 07/05/22 02:50 07/05/22 02:50 Oxygen Delivery Method Room Air Weight: 130 lb 8.218 oz Body Mass Index (BMI) 18.1 Intake & Output: Intake and Output for Last 24 Hours 07/03/22 07/04/22 07/05/22 23:59 23:59 23:59 Intake Total 1555 / 2055 2756.67 / 2756.67 1000 / 1000 Output Total 400 / 400 1999 / 1999 Balance 1555 / 1855 2356.67 / 2356.67 -1000 / -1000 Lab / Micro Data Result Diagrams: 07/04/22 05:12 07/03/22 05:40 Labs: Laboratory Results - last 24 hr 07/02/22 00:10: Anti-Mitochondrial Ab <20.0 07/02/22 05:38: Anti-Smooth Muscle Ab 12, Hepatitis A IgM Ab Negative, Hep Bs Antigen Negative, Hep B Core IgM Ab Negative, Hepatitis C Ab (EIA) Non Reactive, Hep C Ab Comment Comment 07/02/22 05:38: RU Screen Negative 07/04/22 05:12: Total Bilirubin 8.50 H, Direct Bilirubin 6.06 H, AST 84 H, ALT 140 H, Alkaline Phosphatase 123 H, Total Protein 7.8, Albumin 4.1, Globulin 3.7 Radiography Diagnostic Testing: Radiology Impression Upper GI and Small Bowel X-Ray 07/04/22 08:20 IMPRESSION: 1. Unremarkable upper GI series and esophagram. Electronically Signed: Salvatore Levin MD at 10:07 EDT , Physical Exam Narrative Seen and examined. No fever or chills. Denies abdominal pain. Patient vomited after upper GI series. Patient had mild abdominal and left lower quadrant at the time of upper GI series. Scheduled for EGD with Dr. Solis. Physical exam: General: Alert, Oriented x3, Cooperative HEENT: Atraumatic, PERRLA, EOMI, Normocephalic Oral: No Gingival or Mucosal Lesions/ Ulcerations Neck: Supple, No JVD, Negative Carotid Bruits Lungs: Air entry diminished in bilateral lung bases. No crepitation/rhonchi Cardiovascular: Regular rate, Regular Rhythm, Normal S1, Normal S2, No murmurs Abdomen: Bowel Sounds Present, Soft, mild tenderness over RUQ. Liver not enlarged. Spleen not palpable. : No renal angle tenderness. No suprapubic tenderness. Extremities: No edema, Capillary Refill Less than 3 Seconds Skin: No rashes, No breakdown Musculoskeletal: No Tenderness to Palpation of Joints or Extremities. Range of motion adequate and full. Neurological: Cranial nerves II-XII grossly intact, DTR 2+/4 and Symmetrical, Neuro grossly intact Psych/Mental Status: Normal Affect, Appropriate. Assessment & Plan Assessment/Plan (1) Biliary colic: (2) Cholelithiasis: (3) Acquired hyperbilirubinemia: (4) Constipation: PLAN: Plan 21-year-old gentleman was admitted with recurrent postprandial epigastric fullness and bilious vomiting and jaundice. Patient also with right upper quadrant abdominal pain. 1. Acquired direct hyperbilirubinemia with right upper quadrant abdominal pain: Patient is being admitted to [facility] floor. About 2 months ago patient had total bilirubin 2 but this admission peaked to 8.4 and then improving 6.7. AST ALT ratio less than 1. Mainly direct hyperbilirubinemia. Alkaline phosphatase normal. [employer] consulted. Patient has autoimmune antibodies ordered. Upper GI with a small bowel follow-through and gastric emptying study also ordered. Infectious hepatitis work-up including EBV, CMV, urine protoporphyrin, ceruloplasmin, protein electrophoresis and autoimmune hepatitis work-up ordered. CT abdomen reported moderate distention of the stomach with no mass or wall thickening. No bowel obstruction with moderate retained stool in colon. No obstructive uropathy. Normal appendix. GB reported unremarkable. No evidence of ductal dilatation. Liver homogeneous and no focal lesion. Gastric emptying study reported abnormal with delayed semisolid gastric emptying study. Patient had ultrasound of gallbladder on 05/08/2022 that showed distended GB with gallstones and sludge. Bedside ultrasound in ED by ED physician also showed gallstones without stone in the cystic duct. Suspicion for biliary colic with abdominal pain worsens or fatty food. Patient was evaluated by surgery and thinks clinical picture is not entirely typical for gallbladder disease with normal alkaline phosphatase and no leukocytosis. 07/04: Upper GI series reported unremarkable. Patient had vomiting during upper GI series. EGD reported gastritis, LA grade a reflux esophagitis. Excessive gastric fluid. Congested duodenal mucosa. Full liquid diet. Metoclopramide 10 mg p.o. 30 minutes before meals and at bedtime. Azithromycin 500 mg IV every 24 hourly. Mild chronic constipation -Seen on CT -Bowel regimen #DVT ppx: Low risk Clinical Impression(s) from Imaging Studies Abdomen/Pelvis CT 07/01/22 20:14 IMPRESSION: 1. Moderate distention the stomach however no masses or wall thickening identified. 2. No bowel obstruction. Moderate amount retained formed stool in colon. Normal appendix. 3. No evidence of obstructive uropathy. 4. No radiodense calcifications in the gallbladder. Electronically Signed: Bj Cabrera MD at 22:18 EDT , Gastric Emptying Nuclear Medicine 07/03/22 08:11 IMPRESSION: 1. ABNORMAL 99m Tc sulfur colloid semi-solid phase (oatmeal) gastric emptying imaging examination. A. There is delayed semi-solid phase gastric emptying compared to normal controls with maintained first order kinetics throughout all components of the examination. (Waylon et al, J Nucl Med Tech 38: 186, 2010). Electronically Signed: Bj Ozuna at 12:47 EDT ,
[2022-07-05 07:21] LABS: AST(SGOT) 55 U/L (15-37); Alanine Aminotransfer ALT/SGPT 123 U/L (16-61); Albumin, Serum 3.7 g/dL (3.2-5.0); Alkaline Phosphatase 100 U/L (45-117); Anion Gap 7 (5-15); BUN 10 mg/dL (7-18); BUN/Creat Ratio 12.9 RATIO (10-20); Bilirubin, Direct 1.51 mg/dL (0.00-0.30); Calcium,Total 9.1 mg/dL (8.5-10.1); Chloride 105 mmol/L (98-107); Creatinine, Serum 0.77 mg/dL (0.70-1.30); EST Glomerular Filtration Rate 137 mL/min (>60); Est Glom Filt Rate - Afr Amer 166 mL/min (>60); Estimated Creatinine Clearance 129.21 ml/min; Globulin 3.3 g/dL (2.2-4.2); Glucose 89 mg/dL (74-106); Potassium 3.7 mmol/L (3.5-5.1); Sodium Level 139 mmol/L (136-145)
--- NOTE | 2022-07-05 08:00 | PN_ITS ---
Subjective Subjective Patient is doing a lot better today. He had more than 250 cc of bilious fluid removed from his abdomen yesterday. Objective Data Objective Data Vital Signs: Vital Signs Temp Pulse Resp BP Pulse Ox O2 Del Method 97.9 F 74 18 104/58 L 99 Room Air 07/05/22 11:00 07/05/22 11:00 07/05/22 11:00 07/05/22 11:00 07/05/22 11:00 07/05/22 11:00 Oxygen Delivery Method Room Air Weight: 130 lb 8.218 oz Body Mass Index (BMI) 18.1 Intake & Output: Intake and Output for Last 24 Hours 07/03/22 07/04/22 07/05/22 23:59 23:59 23:59 Intake Total 1555 / 2055 2756.67 / 2756.67 1609.5 / 1609.5 Output Total 400 / 400 1999 / 1999 Balance 1555 / 1855 2356.67 / 2356.67 -390.5 / -390.5 Lab / Micro Data Result Diagrams: 07/04/22 05:12 07/05/22 05:56 Labs: Laboratory Results - last 24 hr 07/05/22 05:56: Sodium 139, Potassium 3.7, Chloride 105, Carbon Dioxide 27.0, Anion Gap 7, BUN 10, Creatinine 0.77, Estim Creat Clear Calc 129.21, Est GFR (MDRD) Af Amer 166, Est GFR (MDRD) Non-Af 137, BUN/Creatinine Ratio 12.9, Glucose 89, Calcium 9.1, Total Bilirubin 2.90 H, Direct Bilirubin 1.51 H, AST 55 H, ALT 123 H, Alkaline Phosphatase 100, Total Protein 7.0, Albumin 3.7, Globulin 3.3 Physical Exam Narrative Seen and examined. No fever or chills. Does not have abdominal pain or discomfort. Patient had oral intake and tolerated well Physical exam: General: Alert, Oriented x3, Cooperative HEENT: Atraumatic, PERRLA, EOMI, Normocephalic Oral: No Gingival or Mucosal Lesions/ Ulcerations Neck: Supple, No JVD, Negative Carotid Bruits Lungs: Air entry diminished in bilateral lung bases. No crepitation/rhonchi Cardiovascular: Regular rate, Regular Rhythm, Normal S1, Normal S2, No murmurs Abdomen: Bowel Sounds Present, Soft, no tenderness. Liver not enlarged. Spleen not palpable. : No renal angle tenderness. No suprapubic tenderness. Extremities: No edema, Capillary Refill Less than 3 Seconds Skin: No rashes, No breakdown Musculoskeletal: No Tenderness to Palpation of Joints or Extremities. Range of motion adequate and full. Neurological: Cranial nerves II-XII grossly intact, DTR 2+/4 and Symmetrical, Neuro grossly intact Psych/Mental Status: Normal Affect, Appropriate. Assessment & Plan Assessment/Plan (1) Biliary colic: (2) Cholelithiasis: (3) Acquired hyperbilirubinemia: (4) Constipation: PLAN: Plan 21-year-old gentleman was admitted with recurrent postprandial epigastric fullness and bilious vomiting and jaundice. Patient also with right upper quadrant abdominal pain. 1. Acquired direct hyperbilirubinemia with right upper quadrant abdominal pain: Patient is being admitted to [facility] floor. About 2 months ago patient had total bilirubin 2 but this admission peaked to 8.4 and then improving 6.7. AST ALT ratio less than 1. Mainly direct hyperbilirubinemia. Alkaline phosphatase normal. Treatment Specialist consulted. Patient has autoimmune antibodies ordered. Upper GI with a small bowel follow-through and gastric emptying study also ordered. Infectious hepatitis work-up including EBV, CMV, urine protoporphyrin, ceruloplasmin, protein electrophoresis and autoimmune hepatitis work-up ordered. CT abdomen reported moderate distention of the stomach with no mass or wall thickening. No bowel obstruction with moderate retained stool in colon. No obstructive uropathy. Normal appendix. GB reported unremarkable. No evidence of ductal dilatation. Liver homogeneous and no focal lesion. Gastric emptying study reported abnormal with delayed semisolid gastric emptying study. Patient had ultrasound of gallbladder on 05/08/2022 that showed distended GB with gallstones and sludge. Bedside ultrasound in ED by ED physician also showed gallstones without stone in the cystic duct. Suspicion for biliary colic with abdominal pain worsens or fatty food. Patient was evaluated by surgery and thinks clinical picture is not entirely typical for gallbladder disease with normal alkaline phosphatase and no leukocytosis. 07/04: Upper GI series reported unremarkable. Patient had vomiting during upper GI series. EGD reported gastritis, LA grade a reflux esophagitis. Excessive gastric fluid. Congested duodenal mucosa. Full liquid diet. Metoclopramide 10 mg p.o. 30 minutes before meals and at bedtime. Azithromycin 500 mg IV every 24 hourly. Mild chronic constipation -Seen on CT -Bowel regimen #DVT ppx: Low risk Clinical Impression(s) from Imaging Studies Abdomen/Pelvis CT 07/01/22 20:14 IMPRESSION: 1. Moderate distention the stomach however no masses or wall thickening identified. 2. No bowel obstruction. Moderate amount retained formed stool in colon. Normal appendix. 3. No evidence of obstructive uropathy. 4. No radiodense calcifications in the gallbladder. Electronically Signed: Bj Cabrera MD at 22:18 EDT , Gastric Emptying Nuclear Medicine 07/03/22 08:11 IMPRESSION: 1. ABNORMAL 99m Tc sulfur colloid semi-solid phase (oatmeal) gastric emptying imaging examination. A. There is delayed semi-solid phase gastric emptying compared to normal controls with maintained first order kinetics throughout all components of the examination. (Waylon tapia al, J Nucl Med Tech 38: 186, 2010). Electronically Signed: Bj Ozuna at 12:47 EDT , Charges/Coding Visit Charges Inpatient E&M: 38684 Subs Hosp L3
[2022-07-05] MEDS: Polyethylene Glycol 3350 17 GM PACKET PO (08:35)
[2022-07-05] MEDS: Senna/Docusate Sodium 1 Tablet 2 TABLET PO (08:35)
[2022-07-05 08:45] VITALS: BP 99/64; PULSE 87; RESP 18; TEMP 36.6; O2SAT 100
--- NOTE | 2022-07-05 10:31 | DCINST_ITS ---
Discharge Instructions Diet Discharge Diet: [place] diet (Low-fat bland diet for 5 days) Activity Discharge Activity: Return to Normal Activity Weight Bearing Status: Weight bearing as tolerated Dressing / Incision Call your doctor if you observe: Fever of 101 or Higher, Coldness, Increased Pain, Numbness or Tingling, Change in Color, Inability to urinate, Inability to have a bowel movement, Shortness of breath, Dizziness, Fainting spells, Swelling in the ankles, Chest pain, Prolonged hiccupping, Increased palpitations (irregular heartbeat) and Calf discomfort Follow Up Care When: IN 2 WEEKS Test Results: Test results from this visit will be discussed in further detail at your follow- up appointment, if applicable. Discharge Plan Admission Admit Date/Time: 07/01/22 23:45 Primary Reason for Your Visit: Abdominal pain obstructive jaundice, etiology unclear Attending Provider: Ben Sr Primary Care Provider: Gurpreet Cornelius Consulting Providers: Holly Ng ; Hood Corey ; Alexei Solis ; Yoli Tidwell Discharge Orders/Prescriptions Prescriptions: New polyethylene glycol 3350 17 gram Powder In Packet 17 g PO BID 30 Days Qty: 60 0RF Rx Instructions: Twice daily for 5 days and then once daily. sennosides-docusate sodium [Stool Softener-Stimulant Laxat] 8.6-50 mg Tablet 2 tab PO BID PRN PRN (Reason: Constipation) Qty: 0 0RF pantoprazole [Protonix] 40 mg tablet,delayed release (DR/EC) 40 mg PO DAILY Qty: 30 2RF metoclopramide HCl 5 mg tablet 5 mg PO ACHS 30 Days Qty: 120 0RF Rx Instructions: Half an hour AC before meals and at bedtime daily azithromycin [Zithromax] 500 mg tablet 500 mg PO DAILY Qty: 5 0RF Continued ondansetron 4 mg tablet,disintegrating 8 mg PO Q8H PRN PRN (Reason: Nausea) Qty: 20 0RF sucralfate [Carafate] 1 gram tablet 1 g PO TID 30 Days Qty: 90 0RF Discontinued omeprazole [omeprazole] 20 mg capsule,delayed release(DR/EC) 20 mg PO DAILY Referrals / Follow Up: Gurpreet Cornelius MD [Primary Care Provider] - Alexei Solis DO [Med Staff - Active Staff] - Within 1 Month Disposition Disposition (needs filled in before D/C Order can be placed): Home, Self Care
--- NOTE | 2022-07-05 10:32 | PCM.DC.SUM ---
Providers Date of Admission: 07/01/22 Date of Discharge: 07/05/22 Primary Care Physician: Dr. Gurpreet Cornelius MD Consultations 07/02/22 01:05 Consult: General Surgery Routine Consulting Provider: Holly Ng Reason for Consult: Cholelithiasis with possible choledocholithiasis EMERGENT Consult: No Notified: Yes Date Notified: 07/01/22 Time Notified: 23:54 Method of Notification: ED Physician Initiated 07/03/22 05:55 Consult: Gastroenterology AM (NON MEDS) Consulting Provider: Alexei Solis Reason for Consult: hyperbilirubinemia EMERGENT Consult: No Notified: Yes Date Notified: 07/03/22 Time Notified: 06:17 Method of Notification: Text Reason For Visit: ACUTE CHOLEDOLITHIASIS Diagnosis Discharge Diagnosis (1) Biliary colic: Status: Acute Code(s): K80.50 - Calculus of bile duct without cholangitis or cholecystitis without obstruction (2) Cholelithiasis: Status: Acute Code(s): K80.20 - Calculus of gallbladder without cholecystitis without obstruction (3) Acquired hyperbilirubinemia: Status: Acute Code(s): E80.6 - Other disorders of bilirubin metabolism (4) Constipation: Status: Acute Code(s): K59.00 - Constipation, unspecified Plan 21-year-old gentleman was admitted with recurrent postprandial epigastric fullness and bilious vomiting and jaundice. Patient also with right upper quadrant abdominal pain. 1. Acquired direct hyperbilirubinemia with right upper quadrant abdominal pain: Patient is being admitted to [facility] floor. About 2 months ago patient had total bilirubin 2 but this admission peaked to 8.4 and then improving 6.7. AST ALT ratio less than 1. Mainly direct hyperbilirubinemia. Alkaline phosphatase normal. Firewall Administrator consulted. Patient has autoimmune antibodies ordered. Upper GI with a small bowel follow-through and gastric emptying study also ordered. Infectious hepatitis work-up including EBV, CMV, urine protoporphyrin, ceruloplasmin, protein electrophoresis and autoimmune hepatitis work-up ordered. CT abdomen reported moderate distention of the stomach with no mass or wall thickening. No bowel obstruction with moderate retained stool in colon. No obstructive uropathy. Normal appendix. GB reported unremarkable. No evidence of ductal dilatation. Liver homogeneous and no focal lesion. Gastric emptying study reported abnormal with delayed semisolid gastric emptying study. Patient had ultrasound of gallbladder on 05/08/2022 that showed distended GB with gallstones and sludge. Bedside ultrasound in ED by ED physician also showed gallstones without stone in the cystic duct. Suspicion for biliary colic with abdominal pain worsens or fatty food. Patient was evaluated by surgery and thinks clinical picture is not entirely typical for gallbladder disease with normal alkaline phosphatase and no leukocytosis. 07/04: Upper GI series reported unremarkable. Patient had vomiting during upper GI series. EGD reported gastritis, LA grade a reflux esophagitis. Excessive gastric fluid. Congested duodenal mucosa. Full liquid diet. Metoclopramide 10 mg p.o. 30 minutes before meals and at bedtime. Azithromycin 500 mg IV every 24 hourly. 07/05: Discussed with Dr. Solis. Discharge on metoprolol 1.5 mg 30 minutes prior to meals and at bedtime. Azithromycin 500 mg daily for total of 7 days, 5 more days prescriptions given. Patient might have abdominal pain probably secondary to marijuana intake or abnormal takeoff of gastroduodenal artery from SMA probably compressing duodenum. Advised follow-up with online advertising manager in 2 weeks. Mild chronic constipation -Seen on CT -Bowel regimen: MiraLAX 17 g twice daily for 5 days and then once daily. Senna S2 tablet twice daily. #DVT ppx: Low risk Discharge medication reconciliation done. Discharge follow-up instructions completed. Discharge process discussed with the patient and all questions were answered to patient's satisfaction. Total time spent, exact 35 minutes on discharge meds reconciliation, examination, coordination of care with nurses and ancillary staff, review of imaging and blood test and discussion with the patient on follow-up instructions. Clinical Impression(s) from Imaging Studies Abdomen/Pelvis CT 07/01/22 20:14 IMPRESSION: 1. Moderate distention the stomach however no masses or wall thickening identified. 2. No bowel obstruction. Moderate amount retained formed stool in colon. Normal appendix. 3. No evidence of obstructive uropathy. 4. No radiodense calcifications in the gallbladder. Electronically Signed: Bj Cabrera MD at 22:18 EDT , Gastric Emptying Nuclear Medicine 07/03/22 08:11 IMPRESSION: 1. ABNORMAL 99m Tc sulfur colloid semi-solid phase (oatmeal) gastric emptying imaging examination. A. There is delayed semi-solid phase gastric emptying compared to normal controls with maintained first order kinetics throughout all components of the examination. (Waylon tapia al, J Nucl Med Tech 38: 186, 2010). Electronically Signed: Bj Ozuna, at 12:47 EDT , Medications at Discharge Home Medications ondansetron 4 mg disintegrating tablet 8 mg PO Q8H PRN PRN Nausea #20 tabs 06/30/22 azithromycin 500 mg tablet (Zithromax) 500 mg PO DAILY #5 tabs 07/05/22 metoclopramide HCl 5 mg tablet 5 mg PO ACHS 30 days #120 tabs 07/05/22 pantoprazole 40 mg tablet,delayed release (Protonix) 40 mg PO DAILY #30 tabs 07/05/22 polyethylene glycol 3350 17 gram oral powder packet 17 g PO BID 30 days #60 ea 07/05/22 sennosides 8.6 mg-docusate sodium 50 mg tablet (Stool Softener-Stimulant Laxative) 2 tab PO BID PRN PRN Constipation #0 tabs 07/05/22 sucralfate 1 gram tablet (Carafate) 1 g PO TID Check with primary doctor 30 days #90 tabs 07/05/22 Physical Exam Narrative Seen and examined. No fever or chills. Does not have abdominal pain or discomfort. Patient had oral intake and tolerated well Physical exam: General: Alert, Oriented x3, Cooperative HEENT: Atraumatic, PERRLA, EOMI, Normocephalic Oral: No Gingival or Mucosal Lesions/ Ulcerations Neck: Supple, No JVD, Negative Carotid Bruits Lungs: Air entry diminished in bilateral lung bases. No crepitation/rhonchi Cardiovascular: Regular rate, Regular Rhythm, Normal S1, Normal S2, No murmurs Abdomen: Bowel Sounds Present, Soft, no tenderness. Liver not enlarged. Spleen not palpable. : No renal angle tenderness. No suprapubic tenderness. Extremities: No edema, Capillary Refill Less than 3 Seconds Skin: No rashes, No breakdown Musculoskeletal: No Tenderness to Palpation of Joints or Extremities. Range of motion adequate and full. Neurological: Cranial nerves II-XII grossly intact, DTR 2+/4 and Symmetrical, Neuro grossly intact Psych/Mental Status: Normal Affect, Appropriate. Weight / BMI Weight Weight: 130 lb 8.218 oz Body Mass Index (BMI) 18.1 ABG / Lab / Microbiology Data Result Diagrams: 07/04/22 05:12 07/05/22 05:56 Laboratory: Laboratory Results - last 24 hr 07/02/22 00:10: Anti-Mitochondrial Ab <20.0 07/02/22 05:38: Anti-Smooth Muscle Ab 12, Hepatitis A IgM Ab Negative, Hep Bs Antigen Negative, Hep B Core IgM Ab Negative, Hepatitis C Ab (EIA) Non Reactive, Hep C Ab Comment Comment 07/02/22 05:38: RU Screen Negative 07/05/22 05:56: Sodium 139, Potassium 3.7, Chloride 105, Carbon Dioxide 27.0, Anion Gap 7, BUN 10, Creatinine 0.77, Estim Creat Clear Calc 129.21, Est GFR (MDRD) Af Amer 166, Est GFR (MDRD) Non-Af 137, BUN/Creatinine Ratio 12.9, Glucose 89, Calcium 9.1, Total Bilirubin 2.90 H, Direct Bilirubin 1.51 H, AST 55 H, ALT 123 H, Alkaline Phosphatase 100, Total Protein 7.0, Albumin 3.7, Globulin 3.3 Meaningful Use Info Meaningful Use Diagnoses (Choose all that apply): None applicable Discharge Plan Admission Admit Date/Time: 07/01/22 23:45 Primary Reason for Your Visit: Abdominal pain obstructive jaundice, etiology unclear Attending Provider: Ben Sr Primary Care Provider: Gurpreet Cornelius Consulting Providers: Holly Ng ; Hood Corey ; Friend,Alexei ; Yoli Tidwell Discharge Orders/Prescriptions Prescriptions: New polyethylene glycol 3350 17 gram Powder In Packet 17 g PO BID 30 Days Qty: 60 0RF Rx Instructions: Twice daily for 5 days and then once daily. sennosides-docusate sodium [Stool Softener-Stimulant Laxat] 8.6-50 mg Tablet 2 tab PO BID PRN PRN (Reason: Constipation) Qty: 0 0RF pantoprazole [Protonix] 40 mg tablet,delayed release (DR/EC) 40 mg PO DAILY Qty: 30 2RF metoclopramide HCl 5 mg tablet 5 mg PO ACHS 30 Days Qty: 120 0RF Rx Instructions: Half an hour AC before meals and at bedtime daily azithromycin [Zithromax] 500 mg tablet 500 mg PO DAILY Qty: 5 0RF Continued ondansetron 4 mg tablet,disintegrating 8 mg PO Q8H PRN PRN (Reason: Nausea) Qty: 20 0RF sucralfate [Carafate] 1 gram tablet 1 g PO TID 30 Days Qty: 90 0RF Discontinued omeprazole [omeprazole] 20 mg capsule,delayed release(DR/EC) 20 mg PO DAILY Referrals / Follow Up: Gurpreet Cornelius MD [Primary Care Provider] - FriendAlexei DO [Med Staff - Active Staff] - Within 1 Month Disposition Disposition (needs filled in before D/C Order can be placed): Home, Self Care Charges/Coding Visit Charges Inpatient E&M: 23746 Disch Hosp >30min
[2022-07-05 11:00] VITALS: BP 104/58; PULSE 74; RESP 18; TEMP 36.6; O2SAT 99
[2022-07-06 08:12] LABS: CMV Acute Antibody IgM < 30.0 AU/mL (0.0-29.9); EBV Acute VCA IgM < 36.0 U/mL (0.0-35.9); Gastrin, Serum 89 pg/mL (0-115); Immunoglobulin A 245 mg/dL (90-386); Immunoglobulin E 14 IU/mL (6-495); Immunoglobulin G 1065 mg/dL (671-1456); Immunoglobulin M 115 mg/dL (35-168)
== END 2022-07-05 11:05 | disposition home or self-care (01) | DRG 243 ==
LOC: ED 22:52 → MS3 07-02 00:03
PROVIDERS: Anesthesiology; Internal Medicine; Internal Medicine Gastroenterology; Admitting Provider Hospitalist; Emergency Provider Emergency Medicine; PCP Pediatrics; Visit Provider Internal Medicine
PROC: 0DJ08ZZ Inspection of Upper Intestinal Tract, Via Natural or Artificial Opening Endoscopic (ICD-10-PCS; CPT 43235; principal; 2022-07-04 16:25)
DX: K80.70 Calculus of gallbladder and bile duct without cholecystitis without obstruction (principal); K21.00 Gastro-esophageal reflux disease with esophagitis, without bleeding; E80.4 Gilbert syndrome; F17.200 Nicotine dependence, unspecified, uncomplicated; K59.00 Constipation, unspecified; K29.00 Acute gastritis without bleeding; K31.89 Other diseases of stomach and duodenum; K30 Functional dyspepsia; Z79.899 Other long term (current) drug therapy
CPT/HCPCS: 43239; 86225; 86235 ×5; 36415; 74177; 74246; 74248; 78264; 80048; 80053; 80074; 80076; 80307; 81001; 82248; 82390; 82784; 82785; 82941; 83516; 83690; 85025; 85610; 85652; 85730; 86038; 86140; 86645; 86664; 86665; 96361; 96365; 96366; 96367; 96375; 96376; 97802; 99221; 99283; 99284; A9541; J7030; J7050; J7120; Q9967; A4216; G0378; J2405